=== PATIENT | female | born 1945 | race Caucasian/White ===

== ENCOUNTER 2017-05-12 09:08 | Day surgery (SDC) | payer OTHER ==
[~2017-05-12] VITALS: Ht 190.5 cm; Wt 65.7 kg
[~2017-05-12 09:08] MED LIST: AMLO10; ASPI325 PO; ATOR20; ATORVASTATIN CA20 MG PO; Amlodipine Besy10 MG PO; BUDE6HFA INH; CILO100 PO; Coq-1030 MG; HYDACE5 PO; METO100ER PO; NITR.4SL SL; PROM25 PO; SULTRIDS PO; VALS80; VALSARTAN80 MG PO
[2017-05-12] MEDS ORDERED: Celexa40 MG PO (09:30)
== END 2017-05-12 10:40 | disposition home or self-care (01) ==
LOC: ORSCSDS 09:08
PROVIDERS: Internal Medicine Gastroenterology
PROC: 0DBL8ZX Excision of Transverse Colon, Via Natural or Artificial Opening Endoscopic, Diagnostic (ICD-10-PCS; principal; 2017-05-12 10:15)
PROC: 0DBH8ZX Excision of Cecum, Via Natural or Artificial Opening Endoscopic, Diagnostic (ICD-10-PCS; principal; 2017-05-12 10:15)
PROC: 0DBK8ZX Excision of Ascending Colon, Via Natural or Artificial Opening Endoscopic, Diagnostic (ICD-10-PCS; principal; 2017-05-12 10:15)
DX: Z12.11 Encounter for screening for malignant neoplasm of colon (principal); D12.2 Benign neoplasm of ascending colon; D12.3 Benign neoplasm of transverse colon; K64.4 Residual hemorrhoidal skin tags; K64.8 Other hemorrhoids; K57.30 Diverticulosis of large intestine without perforation or abscess without bleeding; Z86.010 Personal history of colon polyps; I10 Essential (primary) hypertension; E78.00 Pure hypercholesterolemia, unspecified; F32.9 Major depressive disorder, single episode, unspecified; Z87.891 Personal history of nicotine dependence
CPT/HCPCS: 88305; J7120

== ENCOUNTER → 2019-04-08 | Outpatient (CLI) | payer MEDICARE ==
[~2019-04-08] MED LIST changes: +Celexa40 MG PO
[2019-04-08 13:30] LABS: BASOPHILS ABSOLUTE AUTO 0.06 K/mm3 (0.00-0.23); BASOPHILS PERCENT AUTO 1 % (0-2); EOSINOPHILS ABSOLUTE AUTO 0.25 K/mm3 (0.00-0.68); EOSINOPHILS PERCENT AUTO 3 % (0-6); Hematocrit 46.3 % (33.0-51.0); Hemoglobin 15.6 g/dL (11.5-16.0); IMMATURE GRAN ABSOLUTE AUTO 0.02 K/mm3 (0.00-0.10); IMMATURE GRAN PERCENT AUTO 0 % (0-1); LYMPHOCYTES ABSOLUTE AUTO 2.55 K/mm3 (0.84-5.20); LYMPHOCYTES PERCENT AUTO 33 % (21-46); MONOCYTES ABSOLUTE AUTO 0.72 K/mm3 (0.16-1.47); MONOCYTES PERCENT AUTO 9 % (4-13); Mean Corpuscular HGB 32.1 pg (26.0-34.0); Mean Corpuscular HGB Conc 33.7 g/dL (31.5-36.5); Mean Corpuscular Volume 95 fL (80-100); Mean Platelet Volume 9.6 fL (9.1-12.4); NEUTROPHILS ABSOLUTE AUTO 4.21 K/mm3 (1.96-9.15); NEUTROPHILS PERCENT AUTO 54 % (41-73); Platelet Count 303 K/mm3 (150-400); RDW Coefficient Variation 12.6 % (11.7-14.2); RDW Standard Deviation 43.8 fL (35.1-46.3); Red Blood Cell Count 4.86 M/mm3 (3.80-5.20); White Blood Cell Count 7.81 K/mm3 (4.00-11.30)
[2019-04-08 13:48] LABS: Albumin, Blood 3.9 g/dL (3.4-5.0); Bilirubin, Total 0.4 mg/dL (0.1-1.0); Calcium, Blood 9.3 mg/dL (8.5-10.1); Creatinine, Blood 0.93 mg/dL (0.40-1.00); Globulin, Blood 3.9 g/dL (2.2-4.0); Potassium, Blood 4.5 mmol/L (3.5-5.5); Thyroid Stimulating Hormone 1.79 uIU/mL (0.360-4.800); Total Protein, Blood 7.8 g/dL (6.4-8.2)
== END | disposition home or self-care (01) ==
LOC: LAB EV 13:24 → LAB SHORT 13:24
PROVIDERS: Physician Assistant
DX: K92.1 Melena (principal); R53.83 Other fatigue
CPT/HCPCS: 80053; 84443; 85025; 87070; 87205

== ENCOUNTER 2020-05-14 11:14 | Emergency (ER) | payer OTHER ==
[~2020-05-14] VITALS: Ht 162.6 cm; Wt 62.6 kg
== END 2020-05-14 12:45 | disposition home or self-care (01) ==
LOC: ER 11:14
DX: S16.1XXA Strain of muscle, fascia and tendon at neck level, initial encounter (principal); S00.03XA Contusion of scalp, initial encounter; S50.811A Abrasion of right forearm, initial encounter; I10 Essential (primary) hypertension; E78.5 Hyperlipidemia, unspecified; Z79.82 Long term (current) use of aspirin; Z79.899 Other long term (current) drug therapy; Z87.891 Personal history of nicotine dependence; W01.10XA Fall on same level from slipping, tripping and stumbling with subsequent striking against unspecified object, initial encounter
CPT/HCPCS: 70450; 72125; 99284-25

== ENCOUNTER → 2020-07-01 | Outpatient (CLI) | payer OTHER | END | disposition home or self-care (01) | LOC: LAB SHORT 12:42 → PLD 12:42 | DX: D23.71 Other benign neoplasm of skin of right lower limb, including hip (principal) | CPT/HCPCS: 88305 ==

== ENCOUNTER → 2021-01-04 | Outpatient (CLI) | payer OTHER ==
[2021-01-04 11:44] LABS: BASOPHILS ABSOLUTE AUTO 0.08 K/mm3 (0.00-0.23); BASOPHILS PERCENT AUTO 1 % (0-2); EOSINOPHILS PERCENT AUTO 5 % (0-6); Hemoglobin 15.1 g/dL (11.5-16.0); IMMATURE GRAN ABSOLUTE AUTO 0.01 K/mm3 (0.00-0.10); IMMATURE GRAN PERCENT AUTO 0 % (0-1); LYMPHOCYTES ABSOLUTE AUTO 2.52 K/mm3 (0.84-5.20); LYMPHOCYTES PERCENT AUTO 29 % (21-46); MONOCYTES ABSOLUTE AUTO 0.91 K/mm3 (0.16-1.47); MONOCYTES PERCENT AUTO 11 % (4-13); Mean Corpuscular HGB 31.5 pg (26.0-34.0); Mean Corpuscular HGB Conc 32.1 g/dL (31.5-36.5); Mean Corpuscular Volume 98 fL (80-100); Mean Platelet Volume 10.1 fL (9.1-12.4); NEUTROPHILS ABSOLUTE AUTO 4.67 K/mm3 (1.96-9.15); NEUTROPHILS PERCENT AUTO 54 % (41-73); Platelet Count 292 K/mm3 (150-400); RDW Coefficient Variation 13.2 % (11.7-14.2); RDW Standard Deviation 46.8 fL (35.1-46.3); Red Blood Cell Count 4.79 M/mm3 (3.80-5.20); White Blood Cell Count 8.59 K/mm3 (4.00-11.30)
[2021-01-04 12:53] LABS: Albumin, Blood 3.8 g/dL (3.4-5.0); Albumin/Globulin Ratio 0.9 (0.8-1.8); Bilirubin, Total 0.6 mg/dL (0.1-1.0); Bun/Creatinine Ratio 20.7 (12.0-20.0); Calcium, Blood 9.6 mg/dL (8.5-10.1); Creatinine, Blood 1.11 mg/dL (0.40-1.00); Globulin, Blood 4.2 g/dL (2.2-4.0); Potassium, Blood 4.6 mmol/L (3.5-5.5)
== END | disposition home or self-care (01) ==
LOC: OLS 10:49 → LAB SHORT 10:49
PROVIDERS: Internal Medicine Cardiovascular Disease
DX: R06.00 Dyspnea, unspecified (principal); Z79.899 Other long term (current) drug therapy
CPT/HCPCS: 80053; 84443; 85025

== ENCOUNTER 2021-02-24 06:14 | Emergency (ER) | payer OTHER ==
[~2021-02-24] VITALS: Ht 162.6 cm; Wt 65.8 kg
[~2021-02-24 06:14] MED LIST changes: -AMLO10; +AMLO10 PO
[2021-02-24 06:40] LABS: BASOPHILS ABSOLUTE AUTO 0.12 K/mm3 (0.00-0.23); BASOPHILS PERCENT AUTO 1 % (0-2); EOSINOPHILS ABSOLUTE AUTO 0.53 K/mm3 (0.00-0.68); EOSINOPHILS PERCENT AUTO 4 % (0-6); Hematocrit 41.2 % (33.0-51.0); Hemoglobin 13.2 g/dL (11.5-16.0); IMMATURE GRAN ABSOLUTE AUTO 0.04 K/mm3 (0.00-0.10); IMMATURE GRAN PERCENT AUTO 0 % (0-1); LYMPHOCYTES ABSOLUTE AUTO 6.05 K/mm3 (0.84-5.20); LYMPHOCYTES PERCENT AUTO 40 % (21-46); MONOCYTES ABSOLUTE AUTO 1.22 K/mm3 (0.16-1.47); MONOCYTES PERCENT AUTO 8 % (4-13); Mean Corpuscular HGB 32.4 pg (26.0-34.0); Mean Corpuscular Volume 101 fL (80-100); Mean Platelet Volume 10.3 fL (9.1-12.4); NEUTROPHILS ABSOLUTE AUTO 7.23 K/mm3 (1.96-9.15); NEUTROPHILS PERCENT AUTO 48 % (41-73); Platelet Count 364 K/mm3 (150-400); RDW Coefficient Variation 13.5 % (11.7-14.2); RDW Standard Deviation 50.5 fL (35.1-46.3); Red Blood Cell Count 4.07 M/mm3 (3.80-5.20); White Blood Cell Count 15.19 K/mm3 (4.00-11.30)
[2021-02-24 06:55] LABS: Albumin, Blood 3.7 g/dL (3.4-5.0); Albumin/Globulin Ratio 0.9 (0.8-1.8); Bilirubin, Total 0.5 mg/dL (0.1-1.0); Bun/Creatinine Ratio 19.5 (12.0-20.0); Calcium, Blood 9.5 mg/dL (8.5-10.1); Creatinine, Blood 1.18 mg/dL (0.40-1.00); Globulin, Blood 4.2 g/dL (2.2-4.0); Potassium, Blood 4.7 mmol/L (3.5-5.5); Total Protein, Blood 7.9 g/dL (6.4-8.2)
[2021-02-24 07:17] LABS: Influenza A, PCR NEGATIVE (NEGATIVE); Influenza B, PCR NEGATIVE (NEGATIVE); Resp Syncytial Virus, PCR NEGATIVE (NEGATIVE); SARS-Cov-2 (COVID-19) PCR, MMC NEGATIVE (NEGATIVE)
[2021-02-24] MEDS ORDERED: XARELTO20 M1 PO (07:51)
[2021-02-24] MEDS ORDERED: OLMESARTAN MEDO20 MG PO (07:51)
[2021-02-24] MEDS ORDERED: ROSUVASTATIN CA10 MG PO (07:52)
[2021-02-24] MEDS ORDERED: FURO20 PO (09:14)
[2021-02-24] MEDS ORDERED: ALBU90OI INH (09:14)
== END 2021-02-24 10:25 | disposition home or self-care (01) ==
LOC: ER 06:14
PROVIDERS: Emergency Medicine
DX: R06.02 Shortness of breath (principal); I11.0 Hypertensive heart disease with heart failure; I50.9 Heart failure, unspecified; J44.9 Chronic obstructive pulmonary disease, unspecified; I25.10 Atherosclerotic heart disease of native coronary artery without angina pectoris; Z95.1 Presence of aortocoronary bypass graft; Z88.8 Allergy status to other drugs, medicaments and biological substances; Z79.899 Other long term (current) drug therapy; Z79.82 Long term (current) use of aspirin; Z20.822 Contact with and (suspected) exposure to COVID-19
CPT/HCPCS: 0241U; 71045; 80053; 83880; 84484; 85025; 93005; 93010; 96374; 96375; 99285-25; J1940; J2930

== ENCOUNTER 2021-10-09 17:32 | Observation (INO) | payer OTHER ==
[~2021-10-09] VITALS: Ht 167.6 cm; Wt 60.5 kg
[~2021-10-09 17:32] MED LIST changes: +ALBU90OI INH; +FURO20 PO; +OLMESARTAN MEDO20 MG PO; +ROSUVASTATIN CA10 MG PO; +XARELTO20 M1 PO
[2021-10-09 18:21] LABS: BASOPHILS ABSOLUTE AUTO 0.04 K/mm3 (0.00-0.23); BASOPHILS PERCENT AUTO 1 % (0-2); EOSINOPHILS ABSOLUTE AUTO 0.29 K/mm3 (0.00-0.68); EOSINOPHILS PERCENT AUTO 5 % (0-6); Hematocrit 34.8 % (33.0-51.0); Hemoglobin 11.4 g/dL (11.5-16.0); IMMATURE GRAN ABSOLUTE AUTO 0.02 K/mm3 (0.00-0.10); IMMATURE GRAN PERCENT AUTO 0 % (0-1); LYMPHOCYTES ABSOLUTE AUTO 1.96 K/mm3 (0.84-5.20); LYMPHOCYTES PERCENT AUTO 31 % (21-46); MONOCYTES ABSOLUTE AUTO 0.72 K/mm3 (0.16-1.47); MONOCYTES PERCENT AUTO 11 % (4-13); Mean Corpuscular HGB 32.2 pg (26.0-34.0); Mean Corpuscular HGB Conc 32.8 g/dL (31.5-36.5); Mean Corpuscular Volume 98 fL (80-100); Mean Platelet Volume 9.9 fL (9.1-12.4); NEUTROPHILS ABSOLUTE AUTO 3.39 K/mm3 (1.96-9.15); NEUTROPHILS PERCENT AUTO 53 % (41-73); Platelet Count 271 K/mm3 (150-400); RDW Coefficient Variation 12.8 % (11.7-14.2); RDW Standard Deviation 46.3 fL (35.1-46.3); Red Blood Cell Count 3.54 M/mm3 (3.80-5.20); White Blood Cell Count 6.42 K/mm3 (4.00-11.30)
[2021-10-09 18:33] LABS: Albumin, Blood 3.4 g/dL (3.4-5.0); Albumin/Globulin Ratio 1.2 (0.8-1.8); Bilirubin, Total 0.5 mg/dL (0.1-1.0); Bun/Creatinine Ratio 20.5 (12.0-20.0); Calcium, Blood 8.8 mg/dL (8.5-10.1); Creatinine, Blood 1.85 mg/dL (0.40-1.00); Globulin, Blood 2.8 g/dL (2.2-4.0); Potassium, Blood 3.9 mmol/L (3.5-5.5); Total Protein, Blood 6.2 g/dL (6.4-8.2)
[2021-10-09 21:45] LABS: Source, Urine Clean Catch
[2021-10-09 21:47] LABS: Bilirubin, Urine Neg (Neg); Blood, Urine 5+ (Neg); Glucose Qualitative, Urine Neg (Neg); Ketones, Urine Neg (Neg); Leukocyte Esterase, Urine 1+ (Neg); Nitrite, Urine Neg (Neg); Protein, Urine 1+ (Neg); Specific Gravity, Urine 1.015 (1.003-1.022); Urobilinogen, Urine NORM (Normal)
[2021-10-09 21:54] LABS: Appearance, Urine Hazy (Clear); Color, Urine Yellow (P-Yellow)
[2021-10-09 21:55] LABS: Bacteria Not Seen /hpf; Red Blood Cells, Urine 50-100 /hpf (0-2); Squamous Epithelial Cells Rare /hpf (Few); White Blood Cells, Urine 0-2 /hpf (0-5)
[2021-10-10] MEDS ORDERED: FLUT1DIS5 INH (00:49)
[2021-10-10] MEDS ORDERED: FURO20 PO (00:53)
[2021-10-10] MEDS ORDERED: POTCHL20ER PO (00:56)
[2021-10-10 05:58] LABS: BASOPHILS ABSOLUTE AUTO 0.05 K/mm3 (0.00-0.23); BASOPHILS PERCENT AUTO 1 % (0-2); EOSINOPHILS ABSOLUTE AUTO 0.22 K/mm3 (0.00-0.68); EOSINOPHILS PERCENT AUTO 4 % (0-6); Hematocrit 35.5 % (33.0-51.0); Hemoglobin 11.4 g/dL (11.5-16.0); IMMATURE GRAN ABSOLUTE AUTO 0.01 K/mm3 (0.00-0.10); IMMATURE GRAN PERCENT AUTO 0 % (0-1); LYMPHOCYTES ABSOLUTE AUTO 1.98 K/mm3 (0.84-5.20); LYMPHOCYTES PERCENT AUTO 33 % (21-46); MONOCYTES ABSOLUTE AUTO 0.62 K/mm3 (0.16-1.47); MONOCYTES PERCENT AUTO 10 % (4-13); Mean Corpuscular HGB 32.7 pg (26.0-34.0); Mean Corpuscular HGB Conc 32.1 g/dL (31.5-36.5); Mean Corpuscular Volume 102 fL (80-100); Mean Platelet Volume 10.5 fL (9.1-12.4); NEUTROPHILS ABSOLUTE AUTO 3.18 K/mm3 (1.96-9.15); NEUTROPHILS PERCENT AUTO 53 % (41-73); Platelet Count 236 K/mm3 (150-400); RDW Standard Deviation 48.4 fL (35.1-46.3); Red Blood Cell Count 3.49 M/mm3 (3.80-5.20); White Blood Cell Count 6.06 K/mm3 (4.00-11.30)
[2021-10-10 06:14] LABS: CPK Creatine Kinase 51 U/L (26-193)
--- NOTE | 2021-10-10 06:26 | NUR ---
SHIFT SUMMARY AOX4. VSS. TELE NSR HR 60'S. REPORTS CHEST PRESSURE IN ER WAS 3-4/10, DENIES ANY NOW. STATES WHEN SHE GETS THIS PRESSURE ITS USUALLY A PRELUDE TO HER CONVERTING INTO AFIB. PT ADMITTED BECAUSE SHE HAD 2 SYNCOPAL EPISODES AFTER TAKING XANAX FOR THE FIRST TIME. BP LOW UPON ARRIVAL TO ER, HAS BEEN WNL SINCE ARRIVAL TO FLOOR. DENIES DIZZINESS OR BAEZ. REPORTS SHE HAD NAUSEA & 2 EPISODES EMESIS @HOME, NONE SINCE ARRIVING TO FLOOR. SBY ASSIST c TRANSFERS BECAUSE PT STILL UNSTEADY ON FEET. CALL LIGHT IN REACH & PT ABLE TO MAKE NEEDS KNOWN. WILL MONITOR.
[2021-10-10 06:41] LABS: U Amphetamine Screen DETECTED; U Barbituate Screen Not Detected; U Benzodiazapine Screen Not Detected; U Buprenorphine Screen Not Detected; U Cannabinoids Screen DETECTED; U Cocaine Screen Not Detected; U Methadone Screen Not Detected; U Methamphetamine Screen DETECTED; U Opiates Screen Not Detected; U Oxycodone Screen Not Detected; U Phencyclidine Screen Not Detected; U Propoxyphene Screen Not Detected
--- NOTE | 2021-10-10 09:24 | NUR ---
PT GETTING RENAL ULTRASOUND AT BEDSIDE. SPOKE TO DR KOROMA - HE WILL REVIEW HOME MEDS. INFORMED OF HTN.
[2021-10-10 12:45] LABS: CPK Creatine Kinase 52 U/L (26-193)
[2021-10-10] MEDS ORDERED: METO100ER PO (14:40)
[2021-10-10] MEDS ORDERED: OLME5TAB PO (14:40)
--- NOTE | 2021-10-10 15:19 | NUR ---
DISCHARGE NOTE MS FORD WAS DISCHARGED TO HOME AT 1515HRS VIA WHEELCHAIR. SHE SAID SHE FELT WELL TODAY, NO C/O PAIN OR SOB. UP TO THE BR INDEPENDENTLY, STEADY GAIT, GOOD UOP. BP ELEVATED TODAY, DR KOROMA AWARE, AND PT SAID SHE WILL TAKE HER BP MEDS ONCE SHE GETS HOME. PT VERBALISED UNDERSTANDING OF WRITTEN AND VERBAL DISCHARGE INSTRUCTIONS. PIV REMOVED INTACT.
== END 2021-10-10 15:13 | disposition home or self-care (01) ==
LOC: ER 17:32 → MEDS 17:33
PROVIDERS: Student in an Organized Health Care Education/Training Program; ADMIT Internal Medicine
DX: R55 Syncope and collapse (principal); I95.9 Hypotension, unspecified; I11.0 Hypertensive heart disease with heart failure; I50.9 Heart failure, unspecified; N17.9 Acute kidney failure, unspecified; J44.9 Chronic obstructive pulmonary disease, unspecified; E78.5 Hyperlipidemia, unspecified; I48.91 Unspecified atrial fibrillation; Z95.1 Presence of aortocoronary bypass graft; Z87.891 Personal history of nicotine dependence; Z88.8 Allergy status to other drugs, medicaments and biological substances; Z79.01 Long term (current) use of anticoagulants
CPT/HCPCS: 36415; 70450; 71045; 76770; 80053; 81001; 82550; 83880; 84484; 85025; 85379; 87086; 93005; 93010; 96361; 99285-25; G0378; G0480; J7030

== ENCOUNTER 2022-08-17 07:22 | Day surgery (SDC) | payer OTHER ==
[~2022-08-17] VITALS: Ht 160 cm; Wt 56.2 kg
[2022-08-17] VITALS (11 sets, daily range): BP systolic 103–169; BP diastolic 75–117
[~2022-08-17 07:22] MED LIST changes: +ACETAMINOPHEN; +FLUT1DIS5 INH; +OLME5TAB PO; +POTCHL20ER PO
[2022-08-17] MEDS ORDERED: ACET325 PO (07:44)
--- NOTE | 2022-08-17 10:30 | NUR ---
PATIENT ARRIVED TO RECOVERY ROOM CONVERSING APPROPRIATELY. L GROIN SITE C/D/I SOFT/NONTENDER, NO EVIDENCE OF HEMATOMA. PATIENT DENYING ANY PAIN. VSS ON ROOM AIR.
--- NOTE | 2022-08-17 11:30 | NUR ---
HOB ELEVATED 30 DEGREES. PATIENT TOELRATING PO INTAKE WELL. L GROIN SITE C/D/I, SOFT/NONTENDER, NO EVIDENCE OF HEMATOMA. VSS ON ROOM AIR.
--- NOTE | 2022-08-17 12:44 | NUR ---
PATIENT RESTING COMFORTABLY IN BED. HOB ELEVATED. L GROIN SITE C/D/I SOFT/NONTENDER, NO EVIDENCE OF HEMATOMA. VSS ON ROOM AIR.
--- NOTE | 2022-08-17 13:50 | NUR ---
PATIENT AMBULATING TO RESTROOM WITHOUT DIFFICULTY, L GROIN SITE C/D/I SOFT/NONTENDER, NO EVIDENCE OF BLEEDING. VSS ON ROOM AIR
--- NOTE | 2022-08-17 14:22 | NUR ---
PATIENT DISCHARGED HOME AT THIS TIME. ALL PATIENT BELONGINGS AND PAPERWORK LEFT WITH PATIENT. PIV REMOVED WITHOUT DIFFICULTY, CATHETER INTACT. L GROIN SITE C/D/I SOFT/NONTENDER, NO EVIDENCE OF BLEEDING. PATIENT INSTRUCTED ON FEMORAL SITE CARE. VSS ON ROOM AIR. PATIENT WHEELED TO PATIENT ENTRANCE, SON ABLE TO TRANSPORT PATIENT HOME.
== END 2022-08-17 14:49 | disposition home or self-care (01) ==
LOC: MHTC 07:22
DX: I25.708 Atherosclerosis of coronary artery bypass graft(s), unspecified, with other forms of angina pectoris (principal); R06.00 Dyspnea, unspecified; R94.39 Abnormal result of other cardiovascular function study; I77.9 Disorder of arteries and arterioles, unspecified; I42.9 Cardiomyopathy, unspecified; E78.5 Hyperlipidemia, unspecified; I48.91 Unspecified atrial fibrillation
CPT/HCPCS: 76937; 93455; 93567; 99152; 99153; A9270; C1769; C1894; J1644; J2250; J3010; J7030; J7050; Q9967

== ENCOUNTER 2022-10-17 08:15 | Day surgery (SDC) | payer OTHER ==
[~2022-10-17] VITALS: Ht 160 cm; Wt 54.9 kg
[~2022-10-17 08:15] MED LIST changes: +ACET325 PO
[2022-10-17 08:41] VITALS: BP 185/104
[2022-10-17 08:45] VITALS: BP 200/105
[2022-10-17 08:55] VITALS: BP 112/78
--- NOTE | 2022-10-17 08:55 | NUR ---
CARDIOVERSION TIME OUT COMPLETED, PT. IN AFIB ON MONITOR. FLUIDS INFUSING AT 100ML/HR, VSS AT THIS TIME. GIVEN MEDS PER ORDER, SEE FLOW SHEET . MONITOR CHARGED TO 120J PER ORDER. CARDIOVERSION SHOCK DELIVERED AT 0855. PT NOW IN NSR ON MONITOR. EKG COMPLETED. PT. DROWSY BUT CONVERSING AND DENIES ANY PAIN.
[2022-10-17 09:00] VITALS: BP 129/60
[2022-10-17 09:02] VITALS: BP 138/70
[2022-10-17 09:15] VITALS: BP 117/80
--- NOTE | 2022-10-17 09:24 | NUR ---
DR. LA BACK TO BEDSIDE TO TALK WITH PT. NO NEW MEDS AT THIS TIME. FOLLOW UP DISCUSSED.
== END 2022-10-17 10:40 | disposition home or self-care (01) ==
LOC: MHTC 08:15
DX: I48.0 Paroxysmal atrial fibrillation (principal); I25.10 Atherosclerotic heart disease of native coronary artery without angina pectoris; I77.9 Disorder of arteries and arterioles, unspecified; I42.1 Obstructive hypertrophic cardiomyopathy; I10 Essential (primary) hypertension; E78.5 Hyperlipidemia, unspecified
CPT/HCPCS: 92960; 93005; 93010; J2250; J3010; J7030

== ENCOUNTER 2023-07-30 07:42 | Emergency (ER) | payer OTHER ==
[~2023-07-30] VITALS: Ht 162.6 cm; Wt 68.0 kg
[2023-07-30] MEDS ORDERED: FLUTICASONE-SA1 EAC9 INH (07:57)
[2023-07-30 09:00] VITALS: BP 175/108
[2023-07-30 09:25] LABS: BASOPHILS ABSOLUTE AUTO 0.05 K/mm3 (0.00-0.23); BASOPHILS PERCENT AUTO 1 % (0-2); EOSINOPHILS ABSOLUTE AUTO 0.15 K/mm3 (0.00-0.68); EOSINOPHILS PERCENT AUTO 2 % (0-6); Hematocrit 42.1 % (33.0-51.0); Hemoglobin 13.7 g/dL (11.5-16.0); IMMATURE GRAN ABSOLUTE AUTO 0.02 K/mm3 (0.00-0.10); IMMATURE GRAN PERCENT AUTO 0 % (0-1); LYMPHOCYTES ABSOLUTE AUTO 1.81 K/mm3 (0.84-5.20); LYMPHOCYTES PERCENT AUTO 25 % (21-46); MONOCYTES ABSOLUTE AUTO 0.57 K/mm3 (0.16-1.47); MONOCYTES PERCENT AUTO 8 % (4-13); Mean Corpuscular HGB 33.1 pg (26.0-34.0); Mean Corpuscular HGB Conc 32.5 g/dL (31.5-36.5); Mean Corpuscular Volume 102 fL (80-100); Mean Platelet Volume 9.2 fL (9.1-12.4); NEUTROPHILS PERCENT AUTO 64 % (41-73); Platelet Count 247 K/mm3 (150-400); RDW Coefficient Variation 13.3 % (11.7-14.2); RDW Standard Deviation 49.6 fL (35.1-46.3); Red Blood Cell Count 4.14 M/mm3 (3.80-5.20)
[2023-07-30 09:38] LABS: Source, Urine Clean Catch
[2023-07-30 09:41] LABS: Albumin, Blood 3.8 g/dL (3.4-5.0); Albumin/Globulin Ratio 1.2 (0.8-1.8); Bilirubin, Total 0.6 mg/dL (0.1-1.0); Bun/Creatinine Ratio 25.4 (12.0-20.0); Calcium, Blood 9.2 mg/dL (8.5-10.1); Creatinine, Blood 0.87 mg/dL (0.40-1.00); Globulin, Blood 3.1 g/dL (2.2-4.0); Potassium, Blood 4.4 mmol/L (3.5-5.5); Total Protein, Blood 6.9 g/dL (6.4-8.2)
[2023-07-30 09:55] LABS: Appearance, Urine Hazy (Clear); Bilirubin, Urine Neg (Neg); Blood, Urine 5+ (Neg); Color, Urine Yellow (P-Yellow); Glucose Qualitative, Urine Neg (Neg); Ketones, Urine Neg (Neg); Leukocyte Esterase, Urine 3+ (Neg); Nitrite, Urine Neg (Neg); Protein, Urine 3+ (Neg); Urobilinogen, Urine NORM (Normal)
[2023-07-30 10:09] LABS: White Blood Cells, Urine 0-2 /hpf (0-5)
[2023-07-30 10:10] LABS: Bacteria Many /hpf; Red Blood Cells, Urine 25-50 /hpf (0-2); Squamous Epithelial Cells Few /hpf (Few)
[2023-07-30] MEDS ORDERED: SULTRIDS PO (10:31)
== END 2023-07-30 10:48 | disposition home or self-care (01) ==
LOC: ER 07:42
PROVIDERS: Family Medicine
DX: N39.0 Urinary tract infection, site not specified (principal); R31.9 Hematuria, unspecified; Z87.891 Personal history of nicotine dependence; I10 Essential (primary) hypertension; J44.9 Chronic obstructive pulmonary disease, unspecified; E78.5 Hyperlipidemia, unspecified; I25.10 Atherosclerotic heart disease of native coronary artery without angina pectoris; I48.91 Unspecified atrial fibrillation; Z79.01 Long term (current) use of anticoagulants; Z79.899 Other long term (current) drug therapy; Z88.8 Allergy status to other drugs, medicaments and biological substances
CPT/HCPCS: 80053; 81001; 85025; 87086; 99283

== ENCOUNTER → 2023-12-25 | Outpatient (CLI) | payer OTHER ==
[~2023-12-25] MED LIST changes: +FLUTICASONE-SA1 EAC9 INH
[2023-12-25 16:40] LABS: Albumin, Blood 3.9 g/dL (3.4-5.0); Anion Gap 10 mmol/L (3-11); Blood Urea Nitrogen 23 mg/dL (8-24); Bun/Creatinine Ratio 26.5 (12.0-20.0); CO2, Blood 26 mmol/L (21-32); Calcium, Blood 9.4 mg/dL (8.5-10.1); Chloride, Blood 106 mmol/L (98-108); Creatinine, Blood 0.87 mg/dL (0.40-1.00); Glomerular Filtration Rate 69 (60-); Glucose, Blood 87 mg/dL (70-99); Phosphorus, Blood 4.2 mg/dL (2.5-4.9); Potassium, Blood 4.3 mmol/L (3.5-5.5); Sodium, Blood 138 mmol/L (136-145)
== END | disposition home or self-care (01) ==
LOC: LAB 14:10 → LAB SHORT 14:10 → LAB FUT 10-02 08:20
PROVIDERS: Internal Medicine Nephrology
DX: N18.30 Chronic kidney disease, stage 3 unspecified (principal); D63.1 Anemia in chronic kidney disease; N25.81 Secondary hyperparathyroidism of renal origin; E55.9 Vitamin D deficiency, unspecified; N13.30 Unspecified hydronephrosis; D51.8 Other vitamin B12 deficiency anemias; D52.8 Other folate deficiency anemias; D50.9 Iron deficiency anemia, unspecified; R76.9 Abnormal immunological finding in serum, unspecified; R94.5 Abnormal results of liver function studies; R94.6 Abnormal results of thyroid function studies
CPT/HCPCS: 36415; 80069; 85018

== ENCOUNTER → 2024-04-24 | Outpatient (CLI) | payer OTHER | LOC: LAB 15:46 → LAB SHORT 15:46 | DX: N39.0 Urinary tract infection, site not specified (principal) | CPT/HCPCS: 87086 ==

== ENCOUNTER → 2024-04-25 | Outpatient (CLI) | payer OTHER ==
[2024-04-25 21:03] LABS: Creatinine Urine 74.5 mg/dL (27.00-270.00); Protein, Urine Quantitative 41.5 mg/dL (0.0-11.9)
== END | disposition home or self-care (01) ==
LOC: LAB SHORT 16:45 → LAB FUT 04-23 12:00
PROVIDERS: Internal Medicine Nephrology
DX: N18.2 Chronic kidney disease, stage 2 (mild) (principal); D63.1 Anemia in chronic kidney disease; N25.81 Secondary hyperparathyroidism of renal origin; E55.9 Vitamin D deficiency, unspecified; E78.00 Pure hypercholesterolemia, unspecified; R76.9 Abnormal immunological finding in serum, unspecified; R94.5 Abnormal results of liver function studies; R94.6 Abnormal results of thyroid function studies
CPT/HCPCS: 81050; 82043; 82570; 84156

== ENCOUNTER → 2024-04-27 | Outpatient (CLI) | payer OTHER | LOC: LAB 10:20 → LAB SHORT 10:20 | DX: R31.9 Hematuria, unspecified (principal) | CPT/HCPCS: 87086 ==

== ENCOUNTER 2024-05-19 07:23 | Inpatient (IN) | payer OTHER ==
[~2024-05-19] VITALS: Ht 154.9 cm; Wt 54.7 kg
[~2024-05-19 07:23] MED LIST changes: +XARELTO15 MG PO; -XARELTO20 M1 PO
[2024-05-19] MEDS ORDERED: Diltiazem HCl 5 MG / ML 5ML Vial IV ONE ×2 (07:40→08:20)
[2024-05-19] MEDS ORDERED: MethylPREDNISolone Sod Succ 125 MG Vial IV ONE (07:40)
[2024-05-19] MEDS ORDERED: Magnesium Sulf 2 GM/Water 50ML 50 ML IV ONE (07:40)
[2024-05-19] MEDS ORDERED: levalbuterol HCL 1.25 MG/3 ML VIAL INH SCH (07:45)
[2024-05-19 07:50] LABS: BASOPHILS ABSOLUTE AUTO 0.05 K/mm3 (0.00-0.23); BASOPHILS PERCENT AUTO 1 % (0-2); EOSINOPHILS ABSOLUTE AUTO 0.14 K/mm3 (0.00-0.68); EOSINOPHILS PERCENT AUTO 1 % (0-6); Hemoglobin 14.4 g/dL (11.5-16.0); IMMATURE GRAN ABSOLUTE AUTO 0.03 K/mm3 (0.00-0.10); IMMATURE GRAN PERCENT AUTO 0 % (0-1); LYMPHOCYTES ABSOLUTE AUTO 1.73 K/mm3 (0.84-5.20); LYMPHOCYTES PERCENT AUTO 17 % (21-46); MONOCYTES ABSOLUTE AUTO 0.82 K/mm3 (0.16-1.47); MONOCYTES PERCENT AUTO 8 % (4-13); Mean Corpuscular HGB 32.1 pg (26.0-34.0); Mean Corpuscular HGB Conc 32.7 g/dL (31.5-36.5); Mean Corpuscular Volume 98 fL (80-100); Mean Platelet Volume 9.5 fL (9.1-12.4); NEUTROPHILS PERCENT AUTO 73 % (41-73); Platelet Count 299 K/mm3 (150-400); RDW Coefficient Variation 13.4 % (11.7-14.2); RDW Standard Deviation 48.6 fL (35.1-46.3); Red Blood Cell Count 4.49 M/mm3 (3.80-5.20); White Blood Cell Count 10.37 K/mm3 (4.00-11.30)
[2024-05-19 08:18] LABS: Calcium, Blood 9.7 mg/dL (8.5-10.1); Creatinine, Blood 0.76 mg/dL (0.40-1.00); Free Thyroxine 1.2 ng/dL (0.70-1.60); Magnesium, Blood 2.2 mg/dL (1.6-2.4); Potassium, Blood 4.3 mmol/L (3.5-5.5); Thyroid Stimulating Hormone 2.16 uIU/mL (0.360-4.800)
[2024-05-19] MEDS ORDERED: HydrALAZINE HCl 20 MG / ML 1ML Vial IV ONE (08:25)
[2024-05-19 08:53] LABS: Influenza A, PCR NEGATIVE (NEGATIVE); Influenza B, PCR NEGATIVE (NEGATIVE); SARS-Cov-2 (COVID-19) PCR, MMC NEGATIVE (NEGATIVE)
[2024-05-19 10:27] LABS: Resp Syncytial Virus, PCR POSITIVE (NEGATIVE)
[2024-05-19] MEDS ORDERED: FLU VACC TS2024-25(6MOS UP)/PF 45 MCG/0.5 ML SYRINGE IM SCH (10:35)
[2024-05-19 11:23] LABS: Bicarbonate Venous 23.4 mmol/L (24.0-30.0); PCO2 Venous 37.9 mmHg (38-42)
[2024-05-19 14:45] VITALS: BP 172/99
[2024-05-19] MEDS ORDERED: METO100ER PO (14:47)
[2024-05-19] MEDS ORDERED: ROSUVASTATIN CA10 MG PO (14:58)
[2024-05-19] MEDS ORDERED: ALBU90OI INH (15:01)
[2024-05-19] MEDS ORDERED: Albuterol HFA200 ACT/6.7 GM INH INH PRN (15:35)
[2024-05-19] MEDS ORDERED: Mometasone/Formoterol MDI 200/5 mcg 13 GM INH SCH (15:40)
[2024-05-19] MEDS ORDERED: Rivaroxaban 10 MG Tab PO SCH (18:00)
[2024-05-19] MEDS ORDERED: Azithromycin 250 MG Tab PO ONE (18:35)
[2024-05-19] MEDS ORDERED: HydrALAZINE HCl 10 MG Tab PO PRN (18:40)
[2024-05-19] MEDS ORDERED: CefTRIAXone Sodium 1,000 MG in NS 100 ML IV SCH (19:00)
[2024-05-19] MEDS ORDERED: NS 250 ML IV PRN (19:20)
--- NOTE | 2024-05-19 19:26 | NUR ---
SHIFT SUMMARY PT IS A/OX4, INDEPENDENT IN THE ROOM. PT ADMITTED FROM ED THIS AFTERNOON. BP REMAIN ELEVATED. ON 2L NC FOR SOB AND DYSPNEA WITH EXERTION, PT REPORTS RA AT BASELINE. PT'S SON AT BEDSIDE. PT CALLS APPROPRIATELY USING THE CALL LIGHT.
[2024-05-19 19:38] VITALS: BP 160/125
[2024-05-19] MEDS ORDERED: Metoprolol Succinate 50 MG TABCR PO SCH (21:00)
[2024-05-19] MEDS ORDERED: MethylPREDNISolone Sod Succ 125 MG Vial IV SCH (21:00)
[2024-05-19] MEDS ORDERED: Lactobacil 2-S.Thermo-Bifido 1 1 Cap PO SCH (21:00)
[2024-05-19 21:15] VITALS: BP 144/84
[2024-05-20 03:18] VITALS: BP 146/87
--- NOTE | 2024-05-20 05:31 | NUR ---
SHIFT SUMMARY PT SLEPT INTERMITTENTLY DURING THE NIGHT. SON AT BEDSIDE. PT ON 2L NC- ROOM AIR AT BASELINE. PT SOB WITH ACTIVITY, AND NON PRODUCTIVE COUGH. BLOOD PRESSURE WAS QUITE ELEVATED AT START OF SHIFT- MEDICATED WITH SCHEDULED METOPROLOL AND PRN HYDRALIZINE PER EMAR WITH IMPROVEMENT. BED IN LOWEST POSTION, CALL LIGHT WITHIN REACH, SIDERAILS UP X2.
[2024-05-20 06:49] LABS: BASOPHILS ABSOLUTE AUTO 0.02 K/mm3 (0.00-0.23); BASOPHILS PERCENT AUTO 0 % (0-2); EOSINOPHILS PERCENT AUTO 0 % (0-6); Hematocrit 38.1 % (33.0-51.0); Hemoglobin 12.7 g/dL (11.5-16.0); IMMATURE GRAN ABSOLUTE AUTO 0.04 K/mm3 (0.00-0.10); IMMATURE GRAN PERCENT AUTO 1 % (0-1); LYMPHOCYTES ABSOLUTE AUTO 0.87 K/mm3 (0.84-5.20); LYMPHOCYTES PERCENT AUTO 10 % (21-46); MONOCYTES ABSOLUTE AUTO 0.37 K/mm3 (0.16-1.47); MONOCYTES PERCENT AUTO 4 % (4-13); Mean Corpuscular HGB 32.2 pg (26.0-34.0); Mean Corpuscular HGB Conc 33.3 g/dL (31.5-36.5); Mean Corpuscular Volume 97 fL (80-100); Mean Platelet Volume 9.5 fL (9.1-12.4); NEUTROPHILS ABSOLUTE AUTO 7.12 K/mm3 (1.96-9.15); NEUTROPHILS PERCENT AUTO 85 % (41-73); Platelet Count 225 K/mm3 (150-400); RDW Coefficient Variation 13.5 % (11.7-14.2); RDW Standard Deviation 47.9 fL (35.1-46.3); Red Blood Cell Count 3.94 M/mm3 (3.80-5.20); White Blood Cell Count 8.42 K/mm3 (4.00-11.30)
[2024-05-20 07:39] LABS: Albumin, Blood 3.4 g/dL (3.4-5.0); Bilirubin, Total 0.9 mg/dL (0.1-1.0); Bun/Creatinine Ratio 30.4 (12.0-20.0); Calcium, Blood 9.2 mg/dL (8.5-10.1); Creatinine, Blood 0.66 mg/dL (0.40-1.00); Globulin, Blood 3.4 g/dL (2.2-4.0); Magnesium, Blood 2.2 mg/dL (1.6-2.4); Total Protein, Blood 6.8 g/dL (6.4-8.2)
[2024-05-20 08:03] VITALS: BP 153/103
[2024-05-20] MEDS ORDERED: Acetaminophen 325 MG TABLET PO PRN (08:25)
[2024-05-20] MEDS ORDERED: Rosuvastatin Calcium 10 MG Tab PO SCH (09:00)
[2024-05-20] MEDS ORDERED: Metoprolol Tartrate 1 MG/ML 5 ML VIAL IV PRN (09:50)
[2024-05-20] MEDS ORDERED: DOCU100 PO (16:00)
[2024-05-20 16:21] VITALS: BP 157/93
[2024-05-20] MEDS ORDERED: Rivaroxaban 10 MG Tab PO SCH ×3 (17:00→18:00)
[2024-05-20] MEDS ORDERED: Azithromycin 250 MG Tab PO SCH (18:00)
--- NOTE | 2024-05-20 18:07 | NUR ---
SUMMARY- PT AAOX4. CALM AND COOPERATIVE. COMPLAINTS OF BAEZ THIS SHIFT-TYLENOL RELEIVED BAEZ. PT ON 2L O2. IND IN ROOM.
[2024-05-20 21:00] VITALS: BP 150/108
[2024-05-21 01:16] VITALS: BP 149/99
--- NOTE | 2024-05-21 03:50 | NUR ---
SHIFT SUMMARY NO ACUTE EVENTS DURING THIS SHIFT. PT IS A/O X4, DISABLED SON SPENDING THE NIGHT IN THE HOSPITAL ROOM. RT TX AND 3L VIA NASAL CANNULA FOR SOB. BP ELEVATED AT HS, SCHEDULED METOPROLOL EFFECTIVE. BED AT THE LOWEST POSITION, CALL LIGHT W/I REACH. PT IS ABLE TO MAKE HER NEEDS KNOWN AND IS COOPERATIVE WITH CARE. ISOLATION ROOM D/T RSV. EXPIRATORY WHEEZES PER AUSCULTATION.
[2024-05-21 04:48] VITALS: BP 164/104
[2024-05-21 07:26] VITALS: BP 172/111
[2024-05-21] MEDS ORDERED: PredniSONE 20 MG Tab PO SCH (09:00)
[2024-05-21] MEDS ORDERED: Furosemide 10 MG/ML 4ML Vial IV SCH (09:00)
[2024-05-21] MEDS ORDERED: HydrALAZINE HCl 20 MG / ML 1ML Vial IV PRN (09:10)
--- NOTE | 2024-05-21 10:01 | NUR ---
LAERT AND ORIENTED X4, SON AT BEDSIDE, INDEPENDANT IN ROOM, HTN THIS AM, TELE 140S, MEDICATED WITH PRN LABATOLOL, TELE NOTIFIED, RCHO DONE THIS AM, CALL LIGHT WITH IN REACH
[2024-05-21] MEDS ORDERED: Metoprolol Tartrate 1 MG/ML 5 ML VIAL IV ONE (10:55)
[2024-05-21] MEDS ORDERED: Diltiazem HCl 5 MG / ML 5ML Vial IV ONE (13:45)
[2024-05-21 15:32] VITALS: BP 131/97
--- NOTE | 2024-05-21 17:30 | NUR ---
ALERT AND ORIENTED X4, CARDIO CONSULT, TELE AFIB 100-160 THROUGH THE DAY, MEDICATED WITH PRN IV LOPRESSORX2-PATIENTS AFIB DID NOT RESPOND, MEDICATED WITH ONE DOSE OF IV CARDIZM PATIENTS AFIB RESPONDED BUT ONLY FOR ONE HOUR HEART RATE CAME DOWN TO 100, PATIENT STARTED ON Q6H CARDIZEM PO THAT WILL START TONIGHT, PATIENT AUTISTIC SON PASHA AT BEDSIDE. PASHA DOES NOT INTERFER WITH PATIENT'S CARE. ECHO DONE TODAY, MEDICATED FOR A HEADACHE WITH TYLENOL, NEW IV TO RIGHT FOREARM, CALL LIGHT WITH IN REACH, WILL RELAY TO PM DANIEL
[2024-05-21 20:13] VITALS: BP 124/87
[2024-05-21] MEDS ORDERED: Metoprolol Succinate 50 MG TABCR PO SCH (21:00)
[2024-05-21] MEDS ORDERED: dilTIAZem HCL 60 MG TAB PO SCH (21:00)
[2024-05-22] VITALS (9 sets, daily range): BP systolic 107–133; BP diastolic 73–92
--- NOTE | 2024-05-22 04:17 | NUR ---
SHIFT SUMMARY ADMITTED FOR RESPIRATORY FAILURE/PNEUMONIA. FULL CODE. ISOLATION IS FOR RSV+. SHE ALSO HAS CHF AND COPD. SHE HAS BEEN AFIB - RATE UNCONTROLLED ON PREVIOUS SHIFT (UP TO 170'S BPM). THIS SHIFT ANOTHER DOSE OF PO CARDIZEM WAS GIVEN. TELEMETRY: AFIB @ 90-[address] GRIMES. CARDIAC DIET. A&O X4. INDEPENDENT IN ROOM. GOAL IS TO ADJUST HER MEDICINES TO KEEP HER HR CONTROLLED. HX OF TRIPLE BYPASS 2013, AFIB, ON XARELTO. SHE IS ON 3 LPM O2.
--- NOTE | 2024-05-22 06:21 | NUR ---
CALLED HOSPITALIST [employer]MENT SERVICE TECHNICIAN INFORMS ME THAT THE PATIENT'S HR WAS AFIB 94-119 BPM FROM 2300 HOURS UNTIL ABOUT 0400 HOURS. SHE STATES THAT THE HR HAS NOW TRENDED BACK UP AFIB 130'S TO 150'S BPM. SO I DID CALL THE HOSPITALIST. RECEIVED ORDER TO GIVE THIS MORNING'S 0730 DOSE OF CARDIZEM EARLY AT THIS TIME. SEE EMAR.
[2024-05-22 06:41] LABS: Bun/Creatinine Ratio 77.1 (12.0-20.0); Calcium, Blood 8.9 mg/dL (8.5-10.1); Creatinine, Blood 0.75 mg/dL (0.40-1.00); Magnesium, Blood 2.4 mg/dL (1.6-2.4); Potassium, Blood 4.2 mmol/L (3.5-5.5)
[2024-05-22] MEDS ORDERED: dilTIAZem HCL 60 MG TAB PO SCH ×2 (11:30→16:30)
[2024-05-22] MEDS ORDERED: Metoprolol Succinate 50 MG TABCR PO SCH (21:00)
[2024-05-23] VITALS (10 sets, daily range): BP systolic 103–147; BP diastolic 61–126
--- NOTE | 2024-05-23 03:07 | NUR ---
SHIFT SUMMARY NO ACUTE OVERNIGHT EVENTS.TELE, A-FLUTTER @103. O2 99% @2-3L VIA NASAL CANNULA. PT IS A/O X4, INDEPENDENT WITHIN THE HOSPITAL ROOM. PT ABLE TO MAKE HER NEEDS KNOWN AND COOPERATIVE WITH CARE. BED AT THE LOWEST POSITION, CALL LIGHT W/I REACH.
--- NOTE | 2024-05-23 03:13 | NUR ---
SHIFT SUMMARY @HS, PT'S SONS BY THE BEDSIDE. @0310 TELE INFORMED PT'S HR A-FLUTTER WITH RVR'S @150'S. THIS REPORTER ANCHOR CHECKED ON PT, SHE HAD BEEN UP TO THE RESTROOM. PT DENIES PAIN/PRESSURE/SOB. PT BACK TO A-FLUTTER @105. O2 @2L VIA NASAL CANNULA, 99% SAT'S. URINE OUTPUT MEASURED WITH A HAT, URINE DARK/TEA COLOR/ REDDISH. OUTPUT>600MLS DURING THIS SHIFT. NO OTHER CONCERNS DURING THIS SHIFT. BED AT THE LOWEST POSITION, CALL LIGHT WITHIN REACH. PT IS ABLE TO MAKE HER NEEDS KNOWN AND IS COOPERATIVE WITH CARE.
[2024-05-23 06:19] LABS: BASOPHILS ABSOLUTE AUTO 0.03 K/mm3 (0.00-0.23); BASOPHILS PERCENT AUTO 0 % (0-2); EOSINOPHILS PERCENT AUTO 1 % (0-6); Hematocrit 34.5 % (33.0-51.0); Hemoglobin 11.1 g/dL (11.5-16.0); IMMATURE GRAN ABSOLUTE AUTO 0.06 K/mm3 (0.00-0.10); IMMATURE GRAN PERCENT AUTO 1 % (0-1); LYMPHOCYTES ABSOLUTE AUTO 3.15 K/mm3 (0.84-5.20); LYMPHOCYTES PERCENT AUTO 29 % (21-46); MONOCYTES ABSOLUTE AUTO 1.15 K/mm3 (0.16-1.47); MONOCYTES PERCENT AUTO 11 % (4-13); Mean Corpuscular HGB Conc 32.2 g/dL (31.5-36.5); Mean Corpuscular Volume 99 fL (80-100); Mean Platelet Volume 9.9 fL (9.1-12.4); NEUTROPHILS PERCENT AUTO 59 % (41-73); NRBC ABSOLUTE 0.03 K/mm3 (0.00-0.02); NRBC Auto 0.3 /100 WBC (0.0-0.2); Platelet Count 292 K/mm3 (150-400); RDW Coefficient Variation 13.5 % (11.7-14.2); RDW Standard Deviation 49.3 fL (35.1-46.3); Red Blood Cell Count 3.47 M/mm3 (3.80-5.20); White Blood Cell Count 10.99 K/mm3 (4.00-11.30)
[2024-05-23 06:37] LABS: Bun/Creatinine Ratio 105.5 (12.0-20.0); Creatinine, Blood 0.73 mg/dL (0.40-1.00); Potassium, Blood 4.2 mmol/L (3.5-5.5)
[2024-05-23] MEDS ORDERED: dilTIAZem HCL 120 MG CAP.CD PO SCH (11:00)
--- NOTE | 2024-05-24 03:42 | NUR ---
SHIFT SUMMARY NO ACUTE EVENTS DURING THIS SHIFT. PT DENIES PAIN AND DISCOMFORT. O2 @1-2L VIA NASAL CANNULA, SAT'S>99%. PT REPORTS SOB WHEN AMBULATING TO THE RESTROOM. TELE:A-FLUTTER @120. AT HS, HR UP TO 150'S SEVERAL TIMES PER SEISMOGRAPH RECORDER. PT DENIES CHEST PAIN. BED AT THE LOWEST POSITION, CALL LIGHT W/I REACH. PT IS A/O X4, PLEASANT AND ABLE TO MAKE HER NEEDS KNOWN.
[2024-05-24 04:16] VITALS: BP 106/56
[2024-05-24 06:36] LABS: BASOPHILS ABSOLUTE AUTO 0.06 K/mm3 (0.00-0.23); BASOPHILS PERCENT AUTO 1 % (0-2); EOSINOPHILS ABSOLUTE AUTO 0.19 K/mm3 (0.00-0.68); EOSINOPHILS PERCENT AUTO 2 % (0-6); Hematocrit 31.4 % (33.0-51.0); Hemoglobin 10.4 g/dL (11.5-16.0); IMMATURE GRAN ABSOLUTE AUTO 0.13 K/mm3 (0.00-0.10); IMMATURE GRAN PERCENT AUTO 1 % (0-1); LYMPHOCYTES ABSOLUTE AUTO 2.99 K/mm3 (0.84-5.20); LYMPHOCYTES PERCENT AUTO 27 % (21-46); MONOCYTES ABSOLUTE AUTO 0.96 K/mm3 (0.16-1.47); MONOCYTES PERCENT AUTO 9 % (4-13); Mean Corpuscular HGB 32.3 pg (26.0-34.0); Mean Corpuscular HGB Conc 33.1 g/dL (31.5-36.5); Mean Corpuscular Volume 98 fL (80-100); Mean Platelet Volume 9.9 fL (9.1-12.4); NEUTROPHILS ABSOLUTE AUTO 6.95 K/mm3 (1.96-9.15); NEUTROPHILS PERCENT AUTO 62 % (41-73); NRBC ABSOLUTE 0.02 K/mm3 (0.00-0.02); NRBC Auto 0.2 /100 WBC (0.0-0.2); Platelet Count 294 K/mm3 (150-400); RDW Coefficient Variation 13.6 % (11.7-14.2); RDW Standard Deviation 48.1 fL (35.1-46.3); Red Blood Cell Count 3.22 M/mm3 (3.80-5.20); White Blood Cell Count 11.28 K/mm3 (4.00-11.30)
[2024-05-24 06:56] LABS: Bun/Creatinine Ratio 58.9 (12.0-20.0); Calcium, Blood 9.1 mg/dL (8.5-10.1); Creatinine, Blood 0.8 mg/dL (0.40-1.00); Potassium, Blood 4.2 mmol/L (3.5-5.5)
[2024-05-24 07:54] VITALS: BP 128/88
[2024-05-24] MEDS ORDERED: Diltiazem HCl 180 MG Cap.CD PO SCH (09:00)
[2024-05-24] MEDS ORDERED: DILT180 PO (14:53)
--- NOTE | 2024-05-24 15:35 | NUR ---
PT DISCHARGED HOME VIA CAB. PRESCRIPTIONS SENT, EDUCATION PROVIDED.
[2024-05-24] MEDS ORDERED: Rivaroxaban 10 MG Tab PO SCH (17:00)
== END 2024-05-24 15:30 | disposition home or self-care (01) | DRG 291 ==
LOC: ER 07:23 → ERHOLD 10:34 → MEDS 10:34 → ENPENDDIS 05-24 14:10 → MEDS 05-24 15:30
PROVIDERS: Emergency Medicine; Family Medicine; ADMIT Family Medicine
DX: I11.0 Hypertensive heart disease with heart failure (principal); I50.31 Acute diastolic (congestive) heart failure; J96.01 Acute respiratory failure with hypoxia; I48.20 Chronic atrial fibrillation, unspecified; J44.1 Chronic obstructive pulmonary disease with (acute) exacerbation; I48.92 Unspecified atrial flutter; I25.10 Atherosclerotic heart disease of native coronary artery without angina pectoris; E78.5 Hyperlipidemia, unspecified; Z95.1 Presence of aortocoronary bypass graft; B97.4 Respiratory syncytial virus as the cause of diseases classified elsewhere; J44.9 Chronic obstructive pulmonary disease, unspecified; Z85.3 Personal history of malignant neoplasm of breast; Z87.891 Personal history of nicotine dependence; Z88.8 Allergy status to other drugs, medicaments and biological substances; F41.0 Panic disorder [episodic paroxysmal anxiety]; Z85.820 Personal history of malignant melanoma of skin; Z98.890 Other specified postprocedural states
CPT/HCPCS: 0241U; 36415; 71045; 80048; 80053; 82803; 83735; 83880; 84100; 84439; 84443; 84484; 85025; 85379; 93005; 93010; 93306; 94640; 94644; 94664; 94760; 94761; 96365; 96366; 96375; 96376; 99285-25; A9270; J0360; J0696; J1940; J2919; J3475; J7050; J7512; J7614

== ENCOUNTER → 2024-06-27 | Outpatient (CLI) | payer OTHER ==
[~2024-06-27] MED LIST changes: +AMIODARONE HCL400 M2 PO; +AMOX-CLAV 875-1 EAC5 PO; +CARV25 PO; +DILT180 PO; +DOCU100 PO; +HYDROCODONE-AC1 EA19 PO; +SPIR25 PO
== END ==
LOC: LAB 16:04 → LAB SHORT 16:04
DX: R31.9 Hematuria, unspecified (principal); N23 Unspecified renal colic
CPT/HCPCS: 87077; 87086; 87186

== ENCOUNTER 2024-06-28 06:33 | Inpatient (IN) | payer OTHER ==
[~2024-06-28] VITALS: Ht 162.6 cm; Wt 51.9 kg
[2024-06-28] VITALS (8 sets, daily range): BP systolic 105–140; BP diastolic 56–93
[~2024-06-28 06:33] MED LIST changes: -AMIODARONE HCL400 M2 PO; -AMOX-CLAV 875-1 EAC5 PO; -CARV25 PO; -HYDROCODONE-AC1 EA19 PO; -SPIR25 PO
[2024-06-28] MEDS ORDERED: Albuterol 2.5 MG/3 ML VIAL INH SCH (06:35)
[2024-06-28] MEDS ORDERED: Ipratropium/Albuterol SulF 2.5-0.5MG/3 ML Amp INH ONE (06:35)
[2024-06-28] MEDS ORDERED: NS 1,000 ML IV ONE (06:44)
[2024-06-28] MEDS ORDERED: Diltiazem HCl 5 MG / ML 5ML Vial IV ONE (06:45)
[2024-06-28] MEDS ORDERED: NS 1,000 ML IV SCH ×2 (06:45→13:55)
[2024-06-28 06:52] LABS: BASOPHILS ABSOLUTE AUTO 0.11 K/mm3 (0.00-0.23); BASOPHILS PERCENT AUTO 1 % (0-2); EOSINOPHILS ABSOLUTE AUTO 0.18 K/mm3 (0.00-0.68); EOSINOPHILS PERCENT AUTO 1 % (0-6); Hematocrit 35.2 % (33.0-51.0); IMMATURE GRAN ABSOLUTE AUTO 0.11 K/mm3 (0.00-0.10); IMMATURE GRAN PERCENT AUTO 1 % (0-1); LYMPHOCYTES ABSOLUTE AUTO 1.46 K/mm3 (0.84-5.20); LYMPHOCYTES PERCENT AUTO 7 % (21-46); MONOCYTES ABSOLUTE AUTO 0.63 K/mm3 (0.16-1.47); MONOCYTES PERCENT AUTO 3 % (4-13); Mean Corpuscular HGB 29.9 pg (26.0-34.0); Mean Corpuscular HGB Conc 31.3 g/dL (31.5-36.5); Mean Corpuscular Volume 96 fL (80-100); Mean Platelet Volume 8.9 fL (9.1-12.4); NEUTROPHILS ABSOLUTE AUTO 18.91 K/mm3 (1.96-9.15); NEUTROPHILS PERCENT AUTO 89 % (41-73); Platelet Count 454 K/mm3 (150-400); RDW Coefficient Variation 14.5 % (11.7-14.2); RDW Standard Deviation 50.4 fL (35.1-46.3); Red Blood Cell Count 3.68 M/mm3 (3.80-5.20)
[2024-06-28 06:54] LABS: Base Excess Venous -7.4 mmol/L; Bicarbonate Venous 18.1 mmol/L (24.0-30.0); PCO2 Venous 50.9 mmHg (38-42)
[2024-06-28 06:55] LABS: pH Blood Venous 7.21 (7.34-7.37)
[2024-06-28] MEDS ORDERED: LORazepam 2 MG/ML 1ML Injection IV ONE (07:00)
[2024-06-28 07:17] LABS: Albumin, Blood 3.7 g/dL (3.4-5.0); Albumin/Globulin Ratio 1.1 (0.8-1.8); Bilirubin, Total 0.7 mg/dL (0.1-1.0); Bun/Creatinine Ratio 16.2 (12.0-20.0); Calcium, Blood 8.5 mg/dL (8.5-10.1); Creatinine, Blood 1.11 mg/dL (0.40-1.00); Globulin, Blood 3.4 g/dL (2.2-4.0); Magnesium, Blood 1.8 mg/dL (1.6-2.4); Potassium, Blood 4.5 mmol/L (3.5-5.5); Total Protein, Blood 7.1 g/dL (6.4-8.2)
[2024-06-28] MEDS ORDERED: Azithromycin 500 MG in NS 250 ML IV ONE (07:20)
[2024-06-28] MEDS ORDERED: CefTRIAXone Sodium 1,000 MG in NS 50 ML IV ONE (07:20)
[2024-06-28 07:48] LABS: Influenza A, PCR NEGATIVE (NEGATIVE); Influenza B, PCR NEGATIVE (NEGATIVE); Resp Syncytial Virus, PCR NEGATIVE (NEGATIVE); SARS-Cov-2 (COVID-19) PCR, MMC NEGATIVE (NEGATIVE)
[2024-06-28] MEDS ORDERED: Ipratropium/Albuterol SulF 2.5-0.5MG/3 ML Amp INH SCH (08:05)
[2024-06-28] MEDS ORDERED: FLU VACC TS2024-25(6MOS UP)/PF 45 MCG/0.5 ML SYRINGE IM ONE (08:05)
[2024-06-28] MEDS ORDERED: Albuterol 2.5 MG/3 ML VIAL INH PRN (08:05)
[2024-06-28] MEDS ORDERED: Piperacillin/Tazobactam Sod 4.5 GM in NS 100 ML IV ONE (08:20)
[2024-06-28] MEDS ORDERED: Mometasone/Formoterol MDI 200/5 mcg 13 GM INH SCH (08:20)
[2024-06-28] MEDS ORDERED: Vancomycin HCL 1,250 MG in NS 250 ML IV ONE (08:30)
[2024-06-28] MEDS ORDERED: Rivaroxaban 10 MG Tab PO SCH (09:00)
[2024-06-28] MEDS ORDERED: Rosuvastatin Calcium 10 MG Tab PO SCH (09:00)
[2024-06-28] MEDS ORDERED: Metoprolol Succinate 50 MG TABCR PO SCH ×2 (09:00→21:00)
[2024-06-28] MEDS ORDERED: METO100ER PO (09:31)
[2024-06-28] MEDS ORDERED: HYDROCODONE-AC1 EA19 PO (09:32)
[2024-06-28] MEDS ORDERED: AMOX-CLAV 875-1 EAC5 PO (09:32)
[2024-06-28 10:09] LABS: Base Excess Venous -5.3 mmol/L; PCO2 Venous 46.2 mmHg (38-42)
[2024-06-28 10:10] LABS: pH Blood Venous 7.28 (7.34-7.37)
[2024-06-28] MEDS ORDERED: Metoprolol Succinate 50 MG TABCR PO ONE (10:35)
[2024-06-28] MEDS ORDERED: HYDROcodone 5-APAP 325 TAB PO PRN (11:10)
[2024-06-28] MEDS ORDERED: MethylPREDNISolone Sod Succ 40 MG VIAL IV SCH (12:00)
[2024-06-28] MEDS ORDERED: Metoprolol Tartrate 1 MG/ML 5 ML VIAL IV ONE (12:55)
--- NOTE | 2024-06-28 15:40 | NUR ---
Admit Note Received report from ED, pt to room via gurney, transfered with 4 person and slider sheet. Pt oriented to room and call light. Educated on fall risk and to call for assistance. Pt alert, oriented x4; anxious at times, cooperative with care. Pt resting in bed, up with 1 person assist. Pt report bilateral flank pain, medicated x1 per orders. Pt denies chest pain/pressure, nausea, dizziness and numb/tingling. Pt sob with exertion, on 4l o2 via nc when admitted from ER, titrated to ra this afternoon. Pt has been on bipap for approx an hour this afternoon. Tele aflutter/afib; 120-130's, bp stable. Abd sift, nontender. No other acute changes noted. Report given to RN assuming care of patient.
[2024-06-28] MEDS ORDERED: Digoxin 0.25 MG/ML 2ML Amp IV ONE (15:45)
[2024-06-28] MEDS ORDERED: Piperacillin/Tazobactam Sod 4.5 GM in NS 100 ML IV SCH (16:00)
--- NOTE | 2024-06-28 16:33 | NUR ---
CASE CONFRENCE- DISCUSSED PATIENT WITH BEDSIDE RN. PATIENT HAD SOME CONFUSION ABOUT HER CODE STATUS. PROVIDER MET WITH PATIENT AND DISCUSSED CODE STATUS. HE EXPRESSED THAT PATIENT UNDERSTOOD HER DECISION. WILL FOLLOW UP WITH PATIENT FOR SUPPORTATIVE VISIT AND CONTINUED EDUCATION.
--- NOTE | 2024-06-28 16:44 | NUR ---
ASSUMED CARE OF THE PT AT THIS TIME, REPORT RECEIVED FROM FORREST SANCHEZ
--- NOTE | 2024-06-28 18:01 | NUR ---
PT SUMMARY; NO ACUTE CHANGE SINCE ASSUMED CARE, PT WAS GIVEN DIGOXIN IV PUSH 0.125MG HRR RMAINED AFIB AT 110-130'S. SBP 110-120'S, SATS ABOVE 95% ON RA, AFEBRILE. PT DENIES CHEST PAIN/PRESSURE. NS RUNNING AT 100MLS/HR. PT HAS BACK PAIN MANAGED BY PAIN MEDICINE. ABLE TO VOID 200MLS DARK URINE IN THE BEDSIDE COMMODE. DAUGHTER MEDINA CALLED AND WAS GIVEN UPDATE REGARDING PT'S STATUS. PT NOW RESTING IN BED, CALLS APPROPRIATELY. WILL REPORT TO ONCOMING SHIFT
[2024-06-29] VITALS (28 sets, daily range): BP systolic 122–173; BP diastolic 76–119
[2024-06-29 05:03] LABS: BASOPHILS ABSOLUTE AUTO 0.01 K/mm3 (0.00-0.23); BASOPHILS PERCENT AUTO 0 % (0-2); EOSINOPHILS PERCENT AUTO 0 % (0-6); Hematocrit 27.5 % (33.0-51.0); IMMATURE GRAN ABSOLUTE AUTO 0.07 K/mm3 (0.00-0.10); IMMATURE GRAN PERCENT AUTO 1 % (0-1); LYMPHOCYTES ABSOLUTE AUTO 0.83 K/mm3 (0.84-5.20); LYMPHOCYTES PERCENT AUTO 6 % (21-46); MONOCYTES ABSOLUTE AUTO 0.29 K/mm3 (0.16-1.47); MONOCYTES PERCENT AUTO 2 % (4-13); Mean Corpuscular HGB 30.2 pg (26.0-34.0); Mean Corpuscular HGB Conc 32.7 g/dL (31.5-36.5); Mean Corpuscular Volume 92 fL (80-100); Mean Platelet Volume 9.2 fL (9.1-12.4); NEUTROPHILS ABSOLUTE AUTO 11.84 K/mm3 (1.96-9.15); NEUTROPHILS PERCENT AUTO 91 % (41-73); Platelet Count 270 K/mm3 (150-400); RDW Coefficient Variation 14.6 % (11.7-14.2); RDW Standard Deviation 49.3 fL (35.1-46.3); Red Blood Cell Count 2.98 M/mm3 (3.80-5.20); White Blood Cell Count 13.04 K/mm3 (4.00-11.30)
--- NOTE | 2024-06-29 05:23 | NUR ---
SHIFT SUMMARY PT IS A &O X4, ANXIOUS AT TIMES, ABLE TO MAKE NEEDS KNOWN, OBEYS COMMANDS, MOVING ALL EXTREMITIES WITH PURPOSE, PT EDUCATED TO CALL BEFORE AMBULATING, PT AMBULATED SBA TO BRP, PT REPOSITIONING SELF IN BED, PT HAS SLIGHT TREMORS/PT REPORTS HX OF ESSENTIAL TREMORS. CONTINUOUS SPO2, SPO2 GREATER THAN 90% ON RA. LUNG HAVING CRACKLES T/O THE SHIFT HAVE NOT SEEMED TO WORSEN SINCE START OF THIS SHIFT. CONTINUOUS TELE MONITORING, PT AFIB 100-110 S, BP STABLE WITH MAP GREATER THAN 65, PT DENIES CHEST P/P T/O THIS SHIFT, PULSES PRESENT T/O. BOWEL TONES PRESENT IN ALL 4Q, PT DENIES ABD PAIN. PT DENIES FEELINGS OF CONSTIPATION. PT REPORTING FLANK PAIN/NO SIGNS OF BRUISING TO THE AREA, MEDICATED PER ORDERS. SON, FLOYD, CALLED AND UPDATED BY THIS RN, HE MENTIONED CONCERNS ABOUT HIS MOTHER GOING HOME AND HAVING TRANSPORTATION AND HAVING THE RESOURCES SHE NEEDS AT HER HOUSE. BED LOWEST POSITION, CALL LIGHT IN REACH, AWAITING TO GIVE REPORT TO ONCOMING RN.
[2024-06-29 05:28] LABS: Albumin, Blood 3.1 g/dL (3.4-5.0); Bilirubin, Total 0.6 mg/dL (0.1-1.0); Calcium, Blood 8.2 mg/dL (8.5-10.1); Creatinine, Blood 0.91 mg/dL (0.40-1.00); Globulin, Blood 3.1 g/dL (2.2-4.0); Potassium, Blood 3.9 mmol/L (3.5-5.5); Total Protein, Blood 6.2 g/dL (6.4-8.2)
[2024-06-29] MEDS ORDERED: Acetaminophen 325 MG TABLET PO PRN (06:30)
[2024-06-29] MEDS ORDERED: HyDROXyzine HCl 25 MG Tab PO PRN (08:05)
[2024-06-29] MEDS ORDERED: Digoxin 0.25 MG/ML 2ML Amp IV ONE ×2 (08:55→18:10)
[2024-06-29] MEDS ORDERED: Metoprolol Succinate 50 MG TABCR PO SCH (09:00)
[2024-06-29] MEDS ORDERED: PredniSONE 20 MG Tab PO SCH (09:00)
[2024-06-29] MEDS ORDERED: Magnesium Sulf 2 GM/Water 50ML 50 ML IV STA (09:00)
[2024-06-29 10:06] LABS: Source, Urine Clean Catch
[2024-06-29 10:17] LABS: Appearance, Urine Cloudy (Clear); Bilirubin, Urine Neg (Neg); Blood, Urine 5+ (Neg); Color, Urine Brown (P-Yellow); Glucose Qualitative, Urine Neg (Neg); Ketones, Urine 1+ (Neg); Leukocyte Esterase, Urine 2+ (Neg); Nitrite, Urine Neg (Neg); Protein, Urine 3+ (Neg); Urobilinogen, Urine NORM (Normal)
[2024-06-29 10:32] LABS: Bacteria Few /hpf; Red Blood Cells, Urine TNTC /hpf (0-2); Squamous Epithelial Cells Few /hpf (Few); Uric Acid Crystals Few /hpf
[2024-06-29] MEDS ORDERED: Vancomycin HCL 1,000 MG in NS 250 ML IV SCH (11:00)
[2024-06-29] MEDS ORDERED: HydrALAZINE HCl 20 MG / ML 1ML Vial IV PRN (17:35)
[2024-06-29] MEDS ORDERED: Nitroglycerin 0.4 MG SUBL ONE (18:27)
[2024-06-29] MEDS ORDERED: Nitroglycerin 0.4 MG SUBL SL PRN (18:35)
[2024-06-29] MEDS ORDERED: Morphine Sulfate 4 MG/1 ML Injection IV STA (18:50)
[2024-06-29] MEDS ORDERED: Morphine Sulfate 4 MG/1 ML Injection IV PRN (19:00)
--- NOTE | 2024-06-29 19:05 | NUR ---
Chest Pain This evening VS BP and HR elevated, 173/119, 140; Dr Cruz notified, order for hydralazine, administered at 1747. At approx 1807, pt reporting right sided arm pain radiating up neck 10/10 pain, notified Dr Cruz, new order to given norco early and an additional dose of digoxin, medicated per emar. 1830 patient reporting chest pain 12/10; notified Dr Rodríguez, new order for EKG, trop, Nitro; Dr Rodríguez at bedside to review EKG, nitro x3 administered with minimal response, Dr Rodríguez notified, new order for morphine, administered at approx 1900.
[2024-06-29] MEDS ORDERED: Labetalol HCL 5 MG/ML 4ML Injection (Single Dose) IV PRN (20:00)
--- NOTE | 2024-06-29 20:03 | NUR ---
Shift Summary Pt alert, oriented x4; calm and cooperative with care. This am pt hr 130-140's reporting anxiety, notified Dr Cruz, medications per emar. Pt reporting bilateral flank pain, medicated per emar. This evening patient had HTN and treated, developed right arm and chest pain. Tele afib 120's for majority of shift, this evening 130-140's, medicdated with schedule metorpolol and 2 doses of digoxin t/o shift, MD aware, bp stable this am, HTN this evening. Spo2 >90% on ra, breathing tachypnic at times, other unlabored. Abd soft, nontender, +bt. Other vss. Urine culture from 06/27/24 showing ESBL, MD aware, pt and family educated. Other vss. No other acute chagnes noted. Report given to oncoming rn.
[2024-06-30] VITALS (24 sets, daily range): BP systolic 121–180; BP diastolic 86–142
[2024-06-30 04:17] LABS: BASOPHILS ABSOLUTE AUTO 0.01 K/mm3 (0.00-0.23); BASOPHILS PERCENT AUTO 0 % (0-2); EOSINOPHILS PERCENT AUTO 0 % (0-6); Hematocrit 27.9 % (33.0-51.0); Hemoglobin 8.9 g/dL (11.5-16.0); IMMATURE GRAN PERCENT AUTO 1 % (0-1); LYMPHOCYTES ABSOLUTE AUTO 0.85 K/mm3 (0.84-5.20); LYMPHOCYTES PERCENT AUTO 5 % (21-46); MONOCYTES ABSOLUTE AUTO 0.88 K/mm3 (0.16-1.47); MONOCYTES PERCENT AUTO 6 % (4-13); Mean Corpuscular HGB 29.8 pg (26.0-34.0); Mean Corpuscular HGB Conc 31.9 g/dL (31.5-36.5); Mean Corpuscular Volume 93 fL (80-100); Mean Platelet Volume 9.2 fL (9.1-12.4); NEUTROPHILS ABSOLUTE AUTO 13.78 K/mm3 (1.96-9.15); NEUTROPHILS PERCENT AUTO 88 % (41-73); Platelet Count 303 K/mm3 (150-400); RDW Coefficient Variation 15.1 % (11.7-14.2); RDW Standard Deviation 52.1 fL (35.1-46.3); Red Blood Cell Count 2.99 M/mm3 (3.80-5.20); White Blood Cell Count 15.62 K/mm3 (4.00-11.30)
[2024-06-30 04:32] LABS: Bun/Creatinine Ratio 24.8 (12.0-20.0); Calcium, Blood 8.3 mg/dL (8.5-10.1); Creatinine, Blood 0.93 mg/dL (0.40-1.00); Potassium, Blood 4.3 mmol/L (3.5-5.5)
--- NOTE | 2024-06-30 05:47 | NUR ---
SHIFT SUMMARY PT IS A &O X4, ANXIOUS AT TIMES, ABLE TO MAKE NEEDS KNOWN, OBEYS COMMANDS, MOVING ALL EXTREMITIES WITH PURPOSE, PT EDUCATED TO CALL BEFORE AMBULATING, PT AMBULATED SBA TO BSC, PT REPOSITIONING SELF IN BED, PT HAS SLIGHT TREMORS/PT REPORTS HX OF ESSENTIAL TREMORS. CONTINUOUS SPO2, SPO2 GREATER THAN 90% ON RA THE MAJORITY OF THE NIGHT/ WAS ON 2L O2 VIA NC AT THE START OF THIS SHIFT BUT WAS TAKEN OFF @ APPROX 2200. PT BECOMING SOB WITH ACTIVITY BUT MAINTAINS OXYGEN SATURATION. CONTINUOUS TELE MONITORING, PT AFIB 100-110 S/ WAS 130-140 S THE START OF THIS SHIFT BUT CAME DOWN @ APPROX 2200, BP STABLE WITH MAP GREATER THAN 65, PT REPORTED SOME CHEST PAIN THE START OF THIS SHIFT THAT RESOLVED AROUND 2200, SBP ELEVATED AT THE START OF THIS SHIFT 150-160 S/MD NOTIFIED AND NEW ORDERS PLACED/ BEDTIME METOPROLOL GIVEN AND SBP WNL, @ APPROX 0300 SBP 170 S LABETELOL PUSH GIVEN AND SBP WNL AND PT TOLERATED WELL, PULSES PRESENT T/O. BOWEL TONES PRESENT IN ALL 4Q, PT DENIES ABD PAIN. PT DENIES FEELINGS OF CONSTIPATION. PT USING BSC TO VOID, URINE TEA COLORED. PT REPORTING FLANK PAIN/NO SIGNS OF BRUISING TO THE AREA, PT REPORTING RIGHT SHOULDER PAIN THAT RADIATED TO HER NECK AT THE START OF THIS SHIFT/ PAIN IS INTERMITTENT AND EITHER MILD OR GONE ACCORDED TO THE PATIENT , MEDICATED PER ORDERS. SONFLOYD, CALLED AND UPDATED BY THIS RN BED LOWEST POSITION, CALL LIGHT IN REACH, AWAITING TO GIVE REPORT TO ONCOMING RN.
--- NOTE | 2024-06-30 08:49 | NUR ---
ASSUMPTION OF CARE: PATIENT IS UPRIGHT IN BED EATING BREAKFAST, HR IN THE 110-130'S FLUTTER, RR <20, SPO2 >94% ON RA. PATIENT IS MILDLY ANXIOUS, DENIES CURRENT CHEST PAIN PRESSURE OR SOB AT REST. HYPERTENSIVE ON AM VITALS, AM MEDICATIONS GIVEN, DYSPNIC WITH EXERTION TO BSC. ENDORSES DYSURIA, RT HAS ALREADY ROUNDED, NO ACUTE CONCERNS FROM THIS RN AT THIS TIME. ALERT AND ORIENTED X 4 ABLE TO MAKE NEEDS KNOWN,
--- NOTE | 2024-06-30 10:57 | NUR ---
MET WITH PATIENT. SHE REPORTED THAT SHE WAS BEGINNING TO FEEL BETTER. SHE REPORTED THAT SHE WAS "GRUMPY" AND WANTED TO BE LEFT ALONE TO REST. I KEPT MY VISIT BREIF.
[2024-06-30] MEDS ORDERED: Albuterol 2.5 MG/3 ML VIAL INH SCH (15:55)
[2024-06-30] MEDS ORDERED: Mometasone/Formoterol MDI 200/5 mcg 13 GM INH SCH (15:55)
--- NOTE | 2024-06-30 16:38 | NUR ---
EOS: IMPROVED HR CONTROL WITH GTT AFTER CARDIOLOGY CONSULT. PROVIDER SEEN. PATIENT IS ALERT AND ORIENTED X 4. DENIES CHEST PAIN/PRESSURE AND HER SOB IMPROVED AFTER RECEIVING BOLUS OF AMIODARONE. PATIENT TOLERATING 1P SBA TO BSC, URINE APPEARS TO BE IMPROVING STILL CONTAINS BLOOD. LACTIC MINIMALLY IMPROVED DOWN TO 2.3 FROM 2.4. OVERALL IMPROVING WITH AMIO GTT RUNING AT THE 6 HOUR RATE. ON RA SPO2 >94%. ENDORSES SHE SEE PALLIATIVE TOMORROW. ALSO, ENDORSES DNR STATUS CALL TO PROVIDER. NO ACUTE CONCERNS AT THIS TIME NOT ADDRESSED. PLAN OF CARE CONTINUES.
[2024-06-30] MEDS ORDERED: Carvedilol 25 MG Tab PO SCH (17:00)
[2024-06-30] MEDS ORDERED: Lactobacil 2-S.Thermo-Bifido 1 1 Cap PO SCH (21:00)
--- NOTE | 2024-06-30 21:02 | NUR ---
UPDATE GOT REPORT ABOUT PATIENT @1950 FROM HUMBLE SANCHEZ FROM ED.
--- NOTE | 2024-06-30 21:03 | NUR ---
ASSUMED CARE PATIENT ARRIVED TO PCU @ 2009 PATIENT HAS HEPARIN DRIP RUNNING AT 15U. HAS A LEFT 20G WRIST IV. A&O X4 LUNGS CLEAR DIMINSHED IN LOWER LOBES BILATERALLY. NO SKIN ISSUES. PATIENT HAS HEARING AID CASE PUT BY BED WITH NAME ON IT. PATIENT WAS TAUGHT HOW TO USE CALL LIGHT AND TO PREVENT FALLS. CALL LIGHT WITHIN REACH.
--- NOTE | 2024-06-30 23:13 | NUR ---
UPDATE PATIENT'S SBP 150-165'S WITH MAP IN THE 115-120'S. PATIENT NOT HAVING SYMPTOMS. PATIENT IS SLEEPING. NOTIFIED DR. GONZALES AND NO NEW ORDERS AT THIS TIME.
[2024-07-01] VITALS (18 sets, daily range): BP systolic 129–188; BP diastolic 75–125
[2024-07-01 03:33] LABS: BASOPHILS ABSOLUTE AUTO 0.01 K/mm3 (0.00-0.23); BASOPHILS PERCENT AUTO 0 % (0-2); EOSINOPHILS PERCENT AUTO 0 % (0-6); Hematocrit 28.4 % (33.0-51.0); Hemoglobin 9.1 g/dL (11.5-16.0); IMMATURE GRAN ABSOLUTE AUTO 0.08 K/mm3 (0.00-0.10); IMMATURE GRAN PERCENT AUTO 1 % (0-1); LYMPHOCYTES ABSOLUTE AUTO 1.38 K/mm3 (0.84-5.20); LYMPHOCYTES PERCENT AUTO 9 % (21-46); MONOCYTES ABSOLUTE AUTO 0.75 K/mm3 (0.16-1.47); MONOCYTES PERCENT AUTO 5 % (4-13); Mean Corpuscular HGB 29.6 pg (26.0-34.0); Mean Corpuscular Volume 93 fL (80-100); NEUTROPHILS PERCENT AUTO 86 % (41-73); Platelet Count 295 K/mm3 (150-400); RDW Coefficient Variation 15.2 % (11.7-14.2); RDW Standard Deviation 51.1 fL (35.1-46.3); Red Blood Cell Count 3.07 M/mm3 (3.80-5.20); White Blood Cell Count 16.32 K/mm3 (4.00-11.30)
[2024-07-01 03:57] LABS: Bun/Creatinine Ratio 27.4 (12.0-20.0); Calcium, Blood 8.5 mg/dL (8.5-10.1); Creatinine, Blood 0.91 mg/dL (0.40-1.00); Potassium, Blood 4.1 mmol/L (3.5-5.5)
--- NOTE | 2024-07-01 05:45 | NUR ---
SHIFT SUMMARY PATIENT SLEPT OFF AND ON THROUGH FIRST PART OF SHIFT. THE LAST PART PATIENT BECOME ANXIOUS OVER IV PUMP NOISE. NURSE GOT HER EAR PLUGS AND FAN FOR WHITE NOISE AND PATIENT SLEPT FOR THREE MORE HOURS. PATIENT IS AN ONE PERSON ASSIST TO USE BEDSIDE COMMODE. PATIENT BLOOD PRESSURE HAS BEEN ELEVATED THROUGH SHIFT MD (DR. GONZALES) AWARE AND NO NEW ORDERS. SBP 140-160'S, HR IN HAS BEEN IN THE 80-90'S BUT WHEN GETTING UP TO USE COMMODE INCREASES TO THE 110'S BUT RETURNS BACK TO 80-90'S WHEN RELAXING IN BED. HAS LEFT 20G PERIPHERAL IV'S WRIST AND AC. AMIODARONE RUNNING AT 0.5MG/MIN SEE ORDERS FOR DURATION. HAS CHRONIC BACK AND NECK PAIN HAS PAIN MEDS PER EMAR. CALL LIGHT WITHIN REACH.
--- NOTE | 2024-07-01 06:14 | NUR ---
UPDATE SON CALLED THIS EVENING TO CHECK ON MOM. SON INFORMED THAT HE HAS HIRED A CAREGIVER FOR MOM TO GET HOME FROM HOSPITAL WHEN DISCHARGED AND WILL CONTINUE TO CARE FOR PATIENT UNTIL SON RETURNS FROM . PATIENT AWARE AND HAD A CONVERSATION WITH SON ABOUT CAREGIVER. SON WOULD ALSO LIKE HIS (WILIAN) CALLED WHEN MOM GETS DISCHARGED.
[2024-07-01] MEDS ORDERED: Magnesium Hydroxide Conc 10 ML UDC PO PRN (12:05)
[2024-07-01] MEDS ORDERED: Bisacodyl 10 MG Supp PR PRN (12:05)
[2024-07-01] MEDS ORDERED: Amiodarone HCl 200 MG Tab PO SCH (14:00)
--- NOTE | 2024-07-01 17:12 | NUR ---
SHIFT SUMMARY: ASSUMED CARE OF PT AFTER RECEIVING REPORT FROM DANIEL POTTS, AT APPROX 1445. PT IS A&Ox4, ANSWERS QUESTIONS APPROPRIATELY, IS COOPERATIVE W/CARE, ABLE TO MAKE NEEDS KNOWN. PT DENIES SOB, O2 SATS >93% ON RA. AFIB ON MONITOR, RATE 90s-110s AND WILL INCREASE TO 120s-130s W/ACTIVITY. HTN CONTINUES, PT MEDICATED PER EMAR, RESPONDING WELL TO MEDICATIONS. AMIO INFUSION TRANSITIONED TO PO. PT DENIES BLOOD IN URINE THIS SHIFT, IS 1 ASSIST TO/FROM BSC. PT RESTING IN BED AT THIS TIME, CALL LIGHT IN REACH.
[2024-07-01] MEDS ORDERED: Docusate Sodium 100 MG Cap PO SCH (21:00)
[2024-07-01] MEDS ORDERED: Sennosides 8.6 MG Tab PO SCH (21:00)
[2024-07-02] VITALS (11 sets, daily range): BP systolic 139–190; BP diastolic 81–133
[2024-07-02] MEDS ORDERED: HydrALAZINE HCl 20 MG / ML 1ML Vial IV PRN (00:35)
[2024-07-02 04:00] LABS: BASOPHILS ABSOLUTE AUTO 0.01 K/mm3 (0.00-0.23); BASOPHILS PERCENT AUTO 0 % (0-2); EOSINOPHILS ABSOLUTE AUTO 0.01 K/mm3 (0.00-0.68); EOSINOPHILS PERCENT AUTO 0 % (0-6); Hematocrit 31.8 % (33.0-51.0); Hemoglobin 10.2 g/dL (11.5-16.0); IMMATURE GRAN ABSOLUTE AUTO 0.09 K/mm3 (0.00-0.10); IMMATURE GRAN PERCENT AUTO 1 % (0-1); LYMPHOCYTES ABSOLUTE AUTO 1.84 K/mm3 (0.84-5.20); LYMPHOCYTES PERCENT AUTO 12 % (21-46); MONOCYTES ABSOLUTE AUTO 0.65 K/mm3 (0.16-1.47); MONOCYTES PERCENT AUTO 4 % (4-13); Mean Corpuscular HGB 29.2 pg (26.0-34.0); Mean Corpuscular HGB Conc 32.1 g/dL (31.5-36.5); Mean Corpuscular Volume 91 fL (80-100); Mean Platelet Volume 9.2 fL (9.1-12.4); NEUTROPHILS PERCENT AUTO 83 % (41-73); Platelet Count 392 K/mm3 (150-400); RDW Coefficient Variation 14.9 % (11.7-14.2); RDW Standard Deviation 49.5 fL (35.1-46.3); Red Blood Cell Count 3.49 M/mm3 (3.80-5.20)
[2024-07-02 04:33] LABS: Bun/Creatinine Ratio 29.6 (12.0-20.0); Calcium, Blood 8.8 mg/dL (8.5-10.1); Creatinine, Blood 0.91 mg/dL (0.40-1.00); Potassium, Blood 3.6 mmol/L (3.5-5.5)
--- NOTE | 2024-07-02 05:25 | NUR ---
PATIENT DID NOT SLEEP WELL LAST NIGHT UP MOST OF THE NIGHT. ASKING FOR TYLENOL AND NORCO. UP MANY TIMES TO VOID. HEART RATES INCREASES WITH ACTIVITY. REMAINS IN AFLUTTER ON TELE. HYPERTENSIVE TONIGHT HYDRALAZINE GIVEN 10 MG GIVEN WITH GOOD RESULTS. PLAN TO RETURN TO HOME WHEN MEDICALLY STABLE. CONTINUE CARE
[2024-07-02] MEDS ORDERED: Digoxin 0.25 MG/ML 2ML Amp IV ONE (07:55)
[2024-07-02] MEDS ORDERED: Spironolactone 25 MG Tab PO SCH (09:00)
--- NOTE | 2024-07-02 10:17 | NUR ---
ASSUMPTION OF CARE: ONLY CHANGES FROM PREVIOUS SHIFT IS PATIENT WAS STILL HYPERTENSIVE AND INCREASED HR UP TO THE 160'S DR. ANG ORDERED DIG .5 IV X 1 NOW AND [id number] DAILY. BLOOD PERSSURE REPSONDED TO MEDCIATIONS TO INCLUDE HER ORAL AMIO AND 25MG CARVEDILOL . BLOOD PRESSURE IMPROVED WELL. PATIENT STILL HAVING BLOOD IN URINE BUT h&h IMPROVING, NO FURTHER ACUTE CONCERNS PATIENT SLEEP SCHEUDLE IS DEFINITLY SWITCHED TO WHERE SHE IS SLEEPING DAY AND UP MOST THE NIGHT. PLAN OF CARE CONTINUES.
--- NOTE | 2024-07-02 17:56 | NUR ---
EOS: NO MAJOR CONCERNS IDENTIFIED EXCEPT STILL HAVING LABILE BLOOD PRESSURES, DENIES CHEST PAIN PRESSURE OR SOB. STILL HAVING MINIMAL EXERTION INCREASED HEARTRATE TO THE 130'S THIS EVENING AND INCREASED BLOOD PRESSURE AWAITING LEE AFTER CARVEDILOL IS THERAPUETIC. PATIENT OVERALL ENDORSES FEELING BETTER, EDCUATED ON POTENTIAL NEED FOR SUPPOSITORY DUE TO BOWEL DATE. SPO2 >94%. PATIENT HAS BEEN SLEEPING MOST OF THE DAY, MADE PATIENT AWAKEN TO HELP FLIP SCHEDULE. PROVIDER AWARE OF LABILE BLOOD PRESSURE.
[2024-07-03] VITALS (10 sets, daily range): BP systolic 108–190; BP diastolic 70–118
--- NOTE | 2024-07-03 00:52 | NUR ---
PATIENT'S BLOOD PRESSURE ELEVATED >180 SYSTOLIC. HYDRALAZINE 10 MG GIVEN IV
[2024-07-03 04:08] LABS: BASOPHILS ABSOLUTE AUTO 0.02 K/mm3 (0.00-0.23); BASOPHILS PERCENT AUTO 0 % (0-2); EOSINOPHILS ABSOLUTE AUTO 0.24 K/mm3 (0.00-0.68); EOSINOPHILS PERCENT AUTO 2 % (0-6); Hematocrit 35.8 % (33.0-51.0); Hemoglobin 11.5 g/dL (11.5-16.0); IMMATURE GRAN ABSOLUTE AUTO 0.04 K/mm3 (0.00-0.10); IMMATURE GRAN PERCENT AUTO 0 % (0-1); LYMPHOCYTES ABSOLUTE AUTO 2.39 K/mm3 (0.84-5.20); LYMPHOCYTES PERCENT AUTO 19 % (21-46); MONOCYTES ABSOLUTE AUTO 0.72 K/mm3 (0.16-1.47); MONOCYTES PERCENT AUTO 6 % (4-13); Mean Corpuscular HGB 29.3 pg (26.0-34.0); Mean Corpuscular HGB Conc 32.1 g/dL (31.5-36.5); Mean Corpuscular Volume 91 fL (80-100); Mean Platelet Volume 8.9 fL (9.1-12.4); NEUTROPHILS ABSOLUTE AUTO 9.25 K/mm3 (1.96-9.15); NEUTROPHILS PERCENT AUTO 73 % (41-73); Platelet Count 378 K/mm3 (150-400); RDW Standard Deviation 49.3 fL (35.1-46.3); Red Blood Cell Count 3.92 M/mm3 (3.80-5.20); White Blood Cell Count 12.66 K/mm3 (4.00-11.30)
[2024-07-03 04:36] LABS: Bun/Creatinine Ratio 24.5 (12.0-20.0); Calcium, Blood 8.9 mg/dL (8.5-10.1); Creatinine, Blood 1.02 mg/dL (0.40-1.00); Potassium, Blood 3.4 mmol/L (3.5-5.5)
--- NOTE | 2024-07-03 05:03 | NUR ---
PATIENT HAD AN UNEVENTFUL NIGHT. SLEPT AT THE BEGINNING OF THE SHIFT. SLEPT ON AND OFF FOR THE REST OF THE SHIFT. UP FOUR TIMES TO COMMODE. ONE HIGH PRESSURE MEDICATED WITH HYDRALAZINE. NORCO FOR PAIN. CONTINUE CARE
[2024-07-03] MEDS ORDERED: Potassium Chloride 20 MEQ TabCR PO ONE (09:55)
[2024-07-03] MEDS ORDERED: Potassium Chloride 20 MEQ/15 ML UDC PO ONE (11:55)
--- NOTE | 2024-07-03 18:40 | NUR ---
SHIFT SUMMARY: PT A&OX4. FOLLOWS COMMANDS AND MAKES NEEDS KNOWN TO STAFF. PT GOT UP THE THE BSC TO USE THE BATHROOM AND HAD A COUPLE OF BOWEL MOVEMENTS TODAY. PTS BLOOD PRESSURE WAS HIGH THIS AM TILL BP WAS TAKEN MANUALLY AND BLOOD PRESSURES WERE ALOT LOWER. MANUAL BLOOD PRESSURES WERE TAKEN THE REST OF THE SHIFT. PT HAD ONE HIGH BLOOD PRESSURE THIS AFTERNOON WHICH SHE RECIEVED HYDRALAZINE FOR. PTS HR HAS BEEN AT A CONTROLLED RATE MOST OF THE SHIFT, WAS TACHY THIS AM. PTS DAUGHTER IN LAW WOULD LIKE TO BE CALLED FOR ANF DC PLANS (jen- [phone]) NO OTHER SIGNIFICANT EVENTS HAPPENED DURING THIS SHIFT. WILL CONTINUE TO CARE FOR PT TILL END OF SHIFT.
[2024-07-04] VITALS (7 sets, daily range): BP systolic 95–170; BP diastolic 63–88
[2024-07-04 04:06] LABS: BASOPHILS ABSOLUTE AUTO 0.01 K/mm3 (0.00-0.23); BASOPHILS PERCENT AUTO 0 % (0-2); EOSINOPHILS ABSOLUTE AUTO 0.43 K/mm3 (0.00-0.68); EOSINOPHILS PERCENT AUTO 4 % (0-6); Hematocrit 34.8 % (33.0-51.0); Hemoglobin 11.1 g/dL (11.5-16.0); IMMATURE GRAN ABSOLUTE AUTO 0.04 K/mm3 (0.00-0.10); IMMATURE GRAN PERCENT AUTO 0 % (0-1); LYMPHOCYTES ABSOLUTE AUTO 1.94 K/mm3 (0.84-5.20); LYMPHOCYTES PERCENT AUTO 17 % (21-46); MONOCYTES ABSOLUTE AUTO 1.05 K/mm3 (0.16-1.47); MONOCYTES PERCENT AUTO 9 % (4-13); Mean Corpuscular HGB 29.1 pg (26.0-34.0); Mean Corpuscular HGB Conc 31.9 g/dL (31.5-36.5); Mean Corpuscular Volume 91 fL (80-100); NEUTROPHILS ABSOLUTE AUTO 7.67 K/mm3 (1.96-9.15); NEUTROPHILS PERCENT AUTO 69 % (41-73); Platelet Count 341 K/mm3 (150-400); RDW Coefficient Variation 14.8 % (11.7-14.2); RDW Standard Deviation 49.2 fL (35.1-46.3); Red Blood Cell Count 3.81 M/mm3 (3.80-5.20); White Blood Cell Count 11.14 K/mm3 (4.00-11.30)
[2024-07-04 04:27] LABS: Bun/Creatinine Ratio 21.1 (12.0-20.0); Calcium, Blood 8.5 mg/dL (8.5-10.1); Potassium, Blood 3.5 mmol/L (3.5-5.5)
--- NOTE | 2024-07-04 06:37 | NUR ---
SHIFT SUMMARY PATIENT ALERT AND ORIENTED X4. MEDICATED PER EMAR FOR HEADACHE. HAD NO COMPLAINTS OF CHEST PAIN OR SHORTNESS OF BREATH. ON ROOM AIR WITH SPO2 >90%. VITAL SIGNS STABLE. PATIENT IS URINATING WITHOUT DIFFICULTY. WILL CONTINUE TO MONITOR. CALL LIGHT WITHIN REACH.
[2024-07-04] MEDS ORDERED: Potassium Chloride 20 MEQ TabCR PO SCH (09:00)
[2024-07-04] MEDS ORDERED: HydroCHLOROthiazide 25 mg Tab PO SCH (09:00)
--- NOTE | 2024-07-04 11:05 | NUR ---
THIS RN CONTACTED DAUGHTER PEGGYCHIRAG AND UPDATED. THIS RN ASSESSED ABOUT GAREGIVER BEIBNG SETUP FOR WHEN PT IS TO BE DISCHARGED. DAUGHTER MAYA TO CONTACT CAREGIVER. MD NOTIFIED THAT CAREGIVER IS BEING CONTACTED BY FAMILY.
--- NOTE | 2024-07-04 11:53 | NUR ---
MD NOTIFIED OF NOON BP BEING SIGNIFICANT CHANGE FROM THIS MORNING. MD INSTRUCTED THIS RN TO RECHECK BP IN 30 MIN.
--- NOTE | 2024-07-04 15:28 | NUR ---
PT AMBULATED IN HALLWAY ROUGHLY 200 FEET VIA FWW. PT DENIED LIGHTHEADEDNESS OR DIZZINESS. PT REPORTED THAT HER LEGS "FEEL LIKE RUBBER." PT RERURNED TO ROOM AND VITALS TAKEN, VSS STABLE. PT REPORTED SLIGHT SOB ONCE RETURNING TO HER ROOM.
--- NOTE | 2024-07-04 17:52 | NUR ---
SHIFT SUMMARY PT A/OX4 AND COOPERATIVE OF CARE. PT ABLE TO EXPRESS NEEDS AND USED CALL LIGHT APPROPIATE. PT INDEPENDENT IN BED, 1 PER ASSIST AND FWW WHEN AMBULATING. PT BP'S LABILE, SEE CHART. PT REMAINED AFLUTTER THROUGHOUT SHIFT, HR IN THE 120'S IN THE MORNING, DOWN TO 80'S THIS EVENING. OTHER VSS THROUGHOUT SHIFT WITH O2 SATS IN THE LOW 90'S ON RA FOR MAJORITY OF SHIFT. PT DID AMBULATE AROUND PCU WITH ASSISTANCE, SATS DOWN TO 89, PT DID REPORT SLIGHT SOB. NO REPORT OF CHEST PAIN/PRESSURE THROUGHOUT SHIFT. NO HEMATURIA NOTED THIS SHIFT. PT WORKED WITH PHYSICAL THERAPY TODAY, SEE THERAPIST NOTES.
[2024-07-05 00:18] VITALS: BP 100/65
[2024-07-05 04:01] VITALS: BP 161/92
[2024-07-05 04:21] LABS: BASOPHILS ABSOLUTE AUTO 0.02 K/mm3 (0.00-0.23); BASOPHILS PERCENT AUTO 0 % (0-2); EOSINOPHILS ABSOLUTE AUTO 0.29 K/mm3 (0.00-0.68); EOSINOPHILS PERCENT AUTO 3 % (0-6); Hematocrit 33.6 % (33.0-51.0); Hemoglobin 10.7 g/dL (11.5-16.0); IMMATURE GRAN ABSOLUTE AUTO 0.05 K/mm3 (0.00-0.10); IMMATURE GRAN PERCENT AUTO 1 % (0-1); LYMPHOCYTES ABSOLUTE AUTO 1.92 K/mm3 (0.84-5.20); LYMPHOCYTES PERCENT AUTO 18 % (21-46); MONOCYTES ABSOLUTE AUTO 0.97 K/mm3 (0.16-1.47); MONOCYTES PERCENT AUTO 9 % (4-13); Mean Corpuscular HGB 28.7 pg (26.0-34.0); Mean Corpuscular HGB Conc 31.8 g/dL (31.5-36.5); Mean Corpuscular Volume 90 fL (80-100); Mean Platelet Volume 8.8 fL (9.1-12.4); NEUTROPHILS ABSOLUTE AUTO 7.64 K/mm3 (1.96-9.15); NEUTROPHILS PERCENT AUTO 70 % (41-73); Platelet Count 329 K/mm3 (150-400); RDW Coefficient Variation 14.9 % (11.7-14.2); RDW Standard Deviation 48.7 fL (35.1-46.3); Red Blood Cell Count 3.73 M/mm3 (3.80-5.20); White Blood Cell Count 10.89 K/mm3 (4.00-11.30)
[2024-07-05 04:43] LABS: Calcium, Blood 8.8 mg/dL (8.5-10.1); Creatinine, Blood 0.95 mg/dL (0.40-1.00); Potassium, Blood 3.3 mmol/L (3.5-5.5)
--- NOTE | 2024-07-05 06:03 | NUR ---
SHIFT SUMMARY PATIENT ALERT AND ORIENTED X4. HAD NO COMPLAINTS OF PAIN OR SHORTNESS OF BREATH. ON ROOM AIR WITH SPO2 >90%. VITAL SIGNS STABLE. NO ACUTE ISSUES NOTED OVERNIGHT. WILL CONTINUE TO MONITOR. CALL LIGHT WITHIN REACH.
[2024-07-05 07:45] VITALS: BP 143/94
[2024-07-05 09:19] VITALS: BP 83/57
[2024-07-05 12:14] VITALS: BP 98/65
--- NOTE | 2024-07-05 14:21 | NUR ---
SHIFT SUMMARY PATIENT AOX4 ABLE TO MAKE NEEDS KNOWN. SHE DENIES ANY CHEST PAIN OF SOB. HER VITALS ARE STABLE AND SHE TOOK ALL HER MORNING MEDICATIONS THIS AM EXCEPT HER HCTZ AND AROUND 10:00 SHE FELT A LITTLE DIZZY. CHECKED HER BP AND IT WAS 80s/60s. TOLD THE HOSPITALIST IT WAS LOW AND RECHECKED IT WAS 102/70. THE DOCTOR SAID TO WAIT AN HOUR AND RECHECK HER BP. IT WAS 103/64 AT RECHECK AND SO THE DOCTOR SAID TO GET UP AND MOVE AROUND WITH PHYSICAL THERAPY AND ASSESS NEED FOR O2 WITH ACTIVITY AND THE PATIENT CAN BE DISCHARGED.
[2024-07-05] MEDS ORDERED: SPIR25 PO (15:23)
[2024-07-05] MEDS ORDERED: CARV25 PO (15:24)
[2024-07-05] MEDS ORDERED: AMIODARONE HCL400 M2 PO (15:28)
--- NOTE | 2024-07-05 15:50 | NUR ---
PATIENT DISCHARGE PATIENT WAS EDUCATED ON HER DISCHARGE INFORMATION AND HOME MEDICATION PRESCRIPTIONS. SHE UNDERSTANDS ALL THE NEW AND CONTINUED HOME MEDS AND HER CAREGIVER MIGUELANGEL AT BEDSIDE UNDERSTANDS WELL. PATIENT AND CAREGIVER HAVE NO FURTHER QUESTIONS.
== END 2024-07-05 15:50 | disposition home or self-care (01) | DRG 871 ==
LOC: ER 06:33 → PCU 08:02
PROVIDERS: Family Medicine; Student in an Organized Health Care Education/Training Program; ADMIT Internal Medicine
DX: A41.9 Sepsis, unspecified organism (principal); J18.9 Pneumonia, unspecified organism; J96.21 Acute and chronic respiratory failure with hypoxia; J96.22 Acute and chronic respiratory failure with hypercapnia; I13.0 Hypertensive heart and chronic kidney disease with heart failure and stage 1 through stage 4 chronic kidney disease, or unspecified chronic kidney disease; J44.1 Chronic obstructive pulmonary disease with (acute) exacerbation; N39.0 Urinary tract infection, site not specified; E87.20 Acidosis, unspecified; J44.0 Chronic obstructive pulmonary disease with (acute) lower respiratory infection; I24.89 Other forms of acute ischemic heart disease; Z16.12 Extended spectrum beta lactamase (ESBL) resistance; I50.32 Chronic diastolic (congestive) heart failure; I48.20 Chronic atrial fibrillation, unspecified; R65.20 Severe sepsis without septic shock; E11.22 Type 2 diabetes mellitus with diabetic chronic kidney disease; F41.0 Panic disorder [episodic paroxysmal anxiety]; E78.5 Hyperlipidemia, unspecified; R31.9 Hematuria, unspecified; N18.30 Chronic kidney disease, stage 3 unspecified; E87.6 Hypokalemia; Z79.01 Long term (current) use of anticoagulants; Z88.8 Allergy status to other drugs, medicaments and biological substances; Z79.51 Long term (current) use of inhaled steroids; Z79.899 Other long term (current) drug therapy; I25.10 Atherosclerotic heart disease of native coronary artery without angina pectoris; Z95.1 Presence of aortocoronary bypass graft; Z79.891 Long term (current) use of opiate analgesic; Z85.820 Personal history of malignant melanoma of skin; Z90.12 Acquired absence of left breast and nipple; Z98.890 Other specified postprocedural states; Z87.891 Personal history of nicotine dependence
CPT/HCPCS: 0241U; 36415; 71045; 80048; 80053; 81001; 82803; 83605; 83735; 83880; 84145; 84484; 85025; 87040; 87086; 93005; 93010; 94640; 94644; 94660; 94664; 94760; 94761; 94762; 96365; 96368; 96375; 97110; 97161; 97530; 99285-25; A9270; J0282; J0360; J0456; J0696; J1160; J2060; J2270; J2543; J2919; J3370; J3475; J7030; J7050; J7060; J7512

== ENCOUNTER 2024-09-15 09:31 | Emergency (ER) | payer OTHER ==
[~2024-09-15] VITALS: Ht 160 cm; Wt 49.4 kg
[~2024-09-15 09:31] MED LIST changes: +AMIODARONE HCL400 M2 PO; +AMOX-CLAV 875-1 EAC5 PO; +CARV25 PO; +HYDROCODONE-AC1 EA19 PO; +SPIR25 PO
[2024-09-15 09:57] VITALS: BP 165/79
== END 2024-09-15 12:03 | disposition home or self-care (01) ==
LOC: ER 09:31
DX: S01.01XA Laceration without foreign body of scalp, initial encounter (principal); I11.0 Hypertensive heart disease with heart failure; I50.30 Unspecified diastolic (congestive) heart failure; J44.9 Chronic obstructive pulmonary disease, unspecified; E11.9 Type 2 diabetes mellitus without complications; W18.30XA Fall on same level, unspecified, initial encounter; Z88.8 Allergy status to other drugs, medicaments and biological substances; Z79.01 Long term (current) use of anticoagulants; Z79.899 Other long term (current) drug therapy; Z87.891 Personal history of nicotine dependence
CPT/HCPCS: 70450; 72125; 99283-25

== ENCOUNTER 2025-01-23 06:36 | Observation (INO) | payer OTHER ==
[2025-01-23] VITALS (14 sets, daily range): BP systolic 104–212; BP diastolic 58–93
[~2025-01-23] VITALS: Ht 160 cm; Wt 48.6 kg
[~2025-01-23 06:36] MED LIST changes: +ELIQUIS2.5 MG PO; +MELATONIN1 MG PO
[2025-01-23] MEDS ORDERED: FLUT1DIS2 INH (07:04)
[2025-01-23] MEDS ORDERED: NS 1,000 ML IV ONE ×3 (07:08→09:01)
[2025-01-23] MEDS ORDERED: Bupivacaine 0.5% HCl 5 MG/ML 30MLVIAL ONE (07:08)
[2025-01-23] MEDS ORDERED: Heparin Sodium 1000 Units/ML 10ML MDV ONE (07:08)
[2025-01-23] MEDS ORDERED: CeFAZolin Sodium 1000 mg Vial ONE ×3 (07:09→15:41)
[2025-01-23] MEDS ORDERED: Midazolam HCl 1MG / ML 2ML Vial ONE ×2 (07:33→08:44)
[2025-01-23] MEDS ORDERED: FentaNYL Citrate 50 MCG/ML 2 ML Injection ONE ×2 (07:34→08:45)
[2025-01-23] MEDS ORDERED: NS 50 ML IV ONE (07:34)
[2025-01-23] MEDS ORDERED: HYDROcodone 5-APAP 325 TAB PO PRN (10:15)
[2025-01-23] MEDS ORDERED: Albuterol HFA200 ACT/6.7 GM INH INH PRN (10:30)
[2025-01-23] MEDS ORDERED: Formoterol/Mometasone MDI 5/200 mcg 13 GM INH SCH (10:30)
[2025-01-23] MEDS ORDERED: HydrALAZINE HCl 20 MG / ML 1ML Vial IV PRN (11:15)
--- NOTE | 2025-01-23 12:39 | NUR ---
ASSUMPTION OF CARE RECIEVED BEDSIDE REPORT FROM HEART CENTER RN. PT A/O X 4. SATS >90% ON ROOM AIR. ATRIAL PACED, 60s. SBP INITIALLY IN 180s, NOW 140s. ABDOMINAL BINDER IN PLACE WITH LEFT ARM IMMOBILIZER. ABDOMINAL BINDER TOO SMALL, CAUSING DIFFICULTY BREATHING. HEART CENTER RN BROUGHT LARGE BINDER TO REPLACE CURRENT ONE. RT SHOULDER PRESSURE DRESSING C/D/I, NO DRAINAGE OR HEMATOMA VISIBLE. PT REPORTS WORSENING PAIN, TREATED PER EMAR. BED LOCKED IN LOWEST SETTING, CALL LIGHT IN REACH.
[2025-01-23] MEDS ORDERED: CeFAZolin Sodium 1,000 MG in NS 50 ML IV SCH (16:00)
--- NOTE | 2025-01-23 18:20 | NUR ---
SHIFT SUMMARY PT ARRIVAL TO UNIT AT 1042 WEARING ABDOMINAL BINDER WITH LEFT ARM IMMOBILIZER. SHE IS A/O X 4 AND USES CALL LIGHT APPROPRIATELY. PRESSURE BANDAGE REMAINS C/D/I WITH NO EVIDENCE OF DRAINAGE OR HEMATOMA. SHOULDER PAIN WELL CONTROLLED WITH NORCO 5-325. ATRIAL PACED, HR IN 60-70s. ALL OTHER VSS. NO ACUTE CHANGES SINCE ARRIVAL TO UNIT. BED LOCKED IN LOWEST SETTING, CALL LIGHT IN REACH.
[2025-01-24] VITALS: BP 152/66
[2025-01-24 04:20] LABS: Hematocrit 36.3 % (33.0-51.0); Hemoglobin 12.0 g/dL (11.5-16.0); Mean Corpuscular HGB Conc 33.1 g/dL (31.5-36.5); Mean Corpuscular Volume 100 fL (80-100); NRBC ABSOLUTE 0.00 K/mm3 (0.00-0.02); NRBC Auto 0.0 /100 WBC (0.0-0.2); Platelet Count 187 K/mm3 (150-400); RDW Coefficient Variation 13.1 % (11.7-14.2); RDW Standard Deviation 47.8 fL (35.1-46.3)
[2025-01-24 04:44] LABS: Anion Gap 7.0 mmol/L (3-11); Blood Urea Nitrogen 18.0 mg/dL (8-24); CO2, Blood 26.0 mmol/L (21-32); Calcium, Blood 9.0 mg/dL (8.5-10.1); Chloride, Blood 107.0 mmol/L (98-108); Creatinine, Blood 1.33 mg/dL (0.40-1.00); Glucose, Blood 80.0 mg/dL (70-99); Potassium, Blood 4.4 mmol/L (3.5-5.5); Sodium, Blood 136.0 mmol/L (136-145)
[2025-01-24 05:14] VITALS: BP 208/106
--- NOTE | 2025-01-24 05:42 | NUR ---
SHIFT SUMMARY - A/OX4, PLEASANT, COOPERATIVE WITH CARE, VERBALIZES NEEDS. ENDORSES MODERATE PAIN IN HER LEFT SHOULDER/CHEST AT SURGICAL SITE. TREATING PER EMAR. ON CONTINUOUS CARDIAC TELEMETRY. BLOOD PRESSURE SOFT IN 90'S AT BEGINNING OF SHIFT, CARDIAC MEDS HELD PER PARAMETERS IN EMAR. PTS BP SLOWLY ESCALATED OVER THE COURSE OF THE SHIFT. BP 200'S SYSTOLIC AROUND 0500. ADMINISTERED HYDRALAZINE WITH LITTLE EFFECT. IN A SINUS RHYTHM, PACED, HR IN 60'S. REPORTS NO CHANGES IN VISION, HEADACHE, OR ANY OTHER CHANGES. 1P ASSIST TO BEDSIDE COMMODE FOR WEAKNESS. LEFT ARM IMMOBILIZED WITH BINDER.
[2025-01-24 05:58] VITALS: BP 135/114
[2025-01-24 06:04] VITALS: BP 141/65
[2025-01-24 08:00] VITALS: BP 128/66
--- NOTE | 2025-01-24 11:21 | NUR ---
DISCHARGE SUMMARY REVIEWED DISCHARGE ORDERS WITH PATIENT AT 1045. PATIENT TRASNFERRED FROM BED TO WHEELCHAIR INDEPENDENTLY, TOLERATED WELL. PACER SITE BANDAGE C/D/I, WEAERING ARM SLING PROVIDED AND SENT WITH ARM IMMOBILIZER FOR NIGHT USE. PATIENT WHEELED OUT TO RIDE AT 1111. PERSONAL BELONGINGS AND DISCHARGE PACKET WITH PT AT TIME OF DISCHARGE.
== END 2025-01-24 11:15 | disposition home or self-care (01) ==
LOC: MHTC 06:36 → PCU 07:00 → MHTC 07:00 → PCU 10:23
PROVIDERS: ADMIT Internal Medicine Cardiovascular Disease
DX: I49.5 Sick sinus syndrome (principal); I42.1 Obstructive hypertrophic cardiomyopathy; I48.0 Paroxysmal atrial fibrillation; I34.0 Nonrheumatic mitral (valve) insufficiency; I65.29 Occlusion and stenosis of unspecified carotid artery; I12.9 Hypertensive chronic kidney disease with stage 1 through stage 4 chronic kidney disease, or unspecified chronic kidney disease; N18.30 Chronic kidney disease, stage 3 unspecified; E78.00 Pure hypercholesterolemia, unspecified; J44.9 Chronic obstructive pulmonary disease, unspecified; Z79.01 Long term (current) use of anticoagulants; Z79.899 Other long term (current) drug therapy; Z88.8 Allergy status to other drugs, medicaments and biological substances; Z87.891 Personal history of nicotine dependence; Z95.5 Presence of coronary angioplasty implant and graft
CPT/HCPCS: 33208; 36415; 71046; 80048; 85027; 94640; 94664; 94760; 99152; 99153; A9270; C1785; C1898; J0360; J0690; J1644; J2250; J3010; J7030; J7040; Q9967

== ENCOUNTER → 2025-02-18 | Outpatient (CLI) | payer OTHER ==
[~2025-02-18] MED LIST changes: +FLUT1DIS2 INH
== END ==
LOC: LAB SHORT 17:36 → LAB 17:36
DX: R30.0 Dysuria (principal); R10.A2 Flank pain, left side
CPT/HCPCS: 87086